=== PATIENT | female | born 1940 | race Caucasian/White ===

== ENCOUNTER → 2023-12-20 11:14 | Outpatient (REF) | payer MEDICARE, SELFPAY ==
[2023-12-20 10:18] LABS: % Basophils 0.8 % (0-2); % Eosinophils 2.7 % (0-6); % Immature Granulocytes 0.5 % (0-0.5); % Lymphocytes 24.9 % (20.5-51.1); % Monocytes 7.1 % (1.7-9.3); Absolute Eosinophils 0.1 10^3/uL (0-0.7); Absolute Lymphocytes 0.9 10^3/uL (1.2-3.4); Absolute Monocytes 0.3 10^3/uL (0.1-0.6); Absolute Neutrophils 2.3 10^3/uL (1.4-6.5); Hematocrit 37.5 % (37.0-47.0); Hemoglobin 12.8 g/dL (12.0-16.0); Mean Corp Hgb Conc. 34.1 g/dL (33.0-37.0); Mean Corpuscular Hgb 31.3 pg (27.0-31.0); Mean Corpuscular Volume 91.7 fL (81.0-99.0); Mean Platelet Volume 10.5 fL (7.4-10.4); Platelet Count 170 10^3/uL (130-400); Red Blood Cell Count 4.09 10^6/uL (4.20-5.40); Red Cell Dist. Width 12.1 % (11.5-14.5); White Blood Cell Count 3.7 10^3/uL (4.8-10.8)
[2023-12-20 11:17] LABS: ALT (SGPT) 43 U/L (0-35); AST (SGOT) 29 U/L (14-36); Albumin 3.9 g/dl (3.5-5.0); Alkaline Phosphatase 73 U/L (38-126); Blood Urea Nitrogen 13 mg/dl (7-17); Calcium 8.9 mg/dl (8.4-10.2); Carbon Dioxide 27 mmol/L (22-30); Chloride 106 mmol/L (98-107); Glucose 94 mg/dl (70-99); Potassium 3.8 mmol/L (3.5-5.1); Sodium 139 mmol/L (135-145); Total Bilirubin 1.5 mg/dl (0.2-1.3); Total Protein 6.4 g/dl (6.3-8.2); eGFR > 60.00
== END ==
LOC: OIDL 11:14
PROVIDERS: ATTENDING PHYSICIAN Internal Medicine Hematology & Oncology
DX: C50.411 Malignant neoplasm of upper-outer quadrant of right female breast (principal)
CPT/HCPCS: 80053; 85025

== ENCOUNTER → 2023-12-27 11:44 | Outpatient (REF) | payer MEDICARE, SELFPAY ==
[2023-12-27 09:38] LABS: % Basophils 0.5 % (0-2); % Eosinophils 1.9 % (0-6); % Immature Granulocytes 0.3 % (0-0.5); % Lymphocytes 20.5 % (20.5-51.1); % Monocytes 3.7 % (1.7-9.3); % Neutrophils 73.1 % (42.2-75.2); Absolute Eosinophils 0.1 10^3/uL (0-0.7); Absolute Lymphocytes 0.8 10^3/uL (1.2-3.4); Absolute Monocytes 0.1 10^3/uL (0.1-0.6); Absolute Neutrophils 2.7 10^3/uL (1.4-6.5); Hematocrit 35.7 % (37.0-47.0); Hemoglobin 12.1 g/dL (12.0-16.0); Mean Corp Hgb Conc. 33.9 g/dL (33.0-37.0); Mean Corpuscular Hgb 31.4 pg (27.0-31.0); Mean Corpuscular Volume 92.7 fL (81.0-99.0); Mean Platelet Volume 10.5 fL (7.4-10.4); Platelet Count 161 10^3/uL (130-400); Red Blood Cell Count 3.85 10^6/uL (4.20-5.40); Red Cell Dist. Width 12.5 % (11.5-14.5); White Blood Cell Count 3.8 10^3/uL (4.8-10.8)
[2023-12-27 10:14] LABS: ALT (SGPT) 55 U/L (0-35); AST (SGOT) 42 U/L (14-36); Albumin 3.8 g/dl (3.5-5.0); Alkaline Phosphatase 75 U/L (38-126); Blood Urea Nitrogen 20 mg/dl (7-17); Calcium 8.9 mg/dl (8.4-10.2); Carbon Dioxide 29 mmol/L (22-30); Chloride 105 mmol/L (98-107); Glucose 90 mg/dl (70-99); Potassium 3.6 mmol/L (3.5-5.1); Sodium 136 mmol/L (135-145); Total Bilirubin 1.1 mg/dl (0.2-1.3); Total Protein 6.3 g/dl (6.3-8.2); eGFR > 60.00
== END ==
LOC: OIDL 11:44
PROVIDERS: ATTENDING PHYSICIAN Internal Medicine Hematology & Oncology
DX: C50.411 Malignant neoplasm of upper-outer quadrant of right female breast (principal)
CPT/HCPCS: 80053; 85025

== ENCOUNTER 2023-12-29 09:20 | Emergency (ER) | payer MEDICARE, SELFPAY ==
[2023-12-29 09:29] VITALS: BP 129/73
--- NOTE | 2023-12-29 09:45 | ED.GENMED ---
History of Present Illness
General
Chief Complaint: Heart Rate Problem
Source: patient
Time Seen by Provider: 12/29/23 09:44
Travel History
Have you had any contact with someone who has COVID-19?: No
Do you have any symptoms of coronavirus? Fever > 100 degrees, chills, cough, shortness of breath, sore throat, loss of taste or smell, muscle aches, or headache?: No
History of Present Illness
History of Present Illness:
83-year-old female presents to the emergency room complaining of having an episode of rapid heartbeat. Patient was at [facility] where she was observed to have a rapid heart rate of 170. Patient was not startled by this as she
has had multiple episodes of rapid heart rate over many years. She does not have a formal diagnosis but overall sounds like SVT. Episodes typically last a brief amount of time. Patient arrives here with a normal heart rate. She has no symptoms
now. Patient very concerned that visit her dose of chemo today.
Past History
Past History
ED Past Medical History: Other (History of stone in her gallbladder and stone in her kidney diagnosed by ultrasound years ago)
ED Past Surgical History: Appendectomy
Social History
Tobacco: Non-smoker
Alcohol: Daily (Wine One glass)
Drug: None
Personal:
Living: with family
Employment: Retired
Family History
Family History: Other (n/c)
Phy Exam
Physical Exam
Physical Exam:
General: Awake, Alert, Oriented X3. No acute distress.
Vitals: unremarkable
Head: Atraumatic
Eyes: Pupils equal, EOMI
Throat: Airway intact, no exudates
Neck: Trachea midline
Lungs: Clear and equal b/l
Heart: Regular rate, no murmurs
Abd: Soft, Nontender, No pulsatile mass
Neuro: Nonfocal
Skin: Warm, dry, no rash
Extremities: pulses equal b/l, no edema
Course
Orders/Labs/Results
Orders:
Orders
12/29/23 09:25
EKG [Electrocardiogram (*1)] Urgent
Reason for Study: Tachycardia
EKG- Treatment ONCE
12/29/23 10:01
Cardiac Monitoring- Treatment ONCE
12/29/23 10:44
Basic Metabolic Panel Urgent
Complete Blood Count/With Diff Urgent
Magnesium Urgent
Abnormal Lab Results
12/29/23
10:44
WBC 4.5 L 10^3/uL
(4.8-10.8)
RBC 3.73 L 10^6/uL
(4.20-5.40)
Hgb 11.8 L g/dL
(12.0-16.0)
Hct 34.0 L %
(37.0-47.0)
MCH 31.6 H pg
(27.0-31.0)
Abs Immat Gran (auto) 0.1 H 10^3/uL
(0-0.05)
Absolute Lymphs (auto) 0.8 L 10^3/uL
(1.2-3.4)
Immature Gran % 1.5 H %
(0-0.5)
Lymphocytes % 17.3 L %
(20.5-51.1)
Potassium 3.3 L mmol/L
(3.5-5.1)
12/29/23 10:44
12/29/23 10:44
Vital Signs
Initial and Last Documented VS:
Initial Vital Signs
Temp Pulse Resp BP Pulse Ox
98.3 F 98 18 129/73 98
12/29/23 09:29 12/29/23 09:29 12/29/23 09:29 12/29/23 09:29 12/29/23 09:29
Last Documented Vital Signs
Temp Pulse Resp BP Pulse Ox
98.3 F 87 15 103/51 97
12/29/23 09:29 12/29/23 11:30 12/29/23 11:30 12/29/23 11:00 12/29/23 11:30
MDM/Problems Addressed
Differential Diagnosis Includes:
SVT, A-fib with rapid ventricular response
MDM/Problems Addressed:
Patient observed in the emergency room without recurrence of her tachycardia. After discussion with the oncology service the patient was accepted back to [facility] for her chemo. They will arrange outpatient follow-up with a mud jack nozzleman who also
has expertise in oncology. The patient had an episode of SVT which has been an issue she has had for quite some time. She has been having episodes of palpitations for many years. I do not believe this is chemo related.
*Pulse Oximetry
Patient hypoxic: no
*EKG
Interpreted by ED Provider?: Yes
Interpretation: normal
Heart Rate: 96
Rate: normal
Rhythm: sinus
Interval: other (Left anterior fascicular block)
Ischemia: no ischemia
*Director Of Catering Interpretation
Rate: normal
Interpretation: normal
Rhythm: sinus
*Critical Care Note
Total Time (30-74mins, 75-104mins- exclusive of procedures): Not Applicable
Patient Management
Social determinants of health affecting care: Strong social support
ED Attending Note
-
Portions of this chart may have been created with voice recognition software.� Occasional wrong word or��sound alike� substitutions may have occurred due to the inherent limitations of voice recognition software.
Discharge Plan
Departure
Patient Disposition: Home (Routine Discharge)
Date of Disposition: 12/29/23
Time of Disposition: 11:16
Patient with high blood pressure during this ER visit?: No
Condition: Good
Discharge Problem:
SVT (supraventricular tachycardia)
Instructions: Supraventricular tachycardia (SVT)
Prescriptions:
No Action
loperamide [Imodium] 2 mg Capsule
2 mg PO Q4H PRN (Reason: diarrhea)
prochlorperazine maleate 10 mg tablet
10 mg PO Q6H PRN (Reason: nausea)
dexamethasone 4 mg tablet
4 mg PO SUSA
Rx Instructions:
for 2 days after chemo
Activity Restrictions/Additional Instructions:
Please follow up with the mud jack nozzleman that [place] sets you up with. Return for any concerns
Interventions
Interventions:
*Risk Screen - Suicide Last Done: 12/29/23 09:29
*General Assessment Last Done: 12/29/23 09:29
*Neglect/Abuse Screening Last Done: 12/29/23 09:29
ED- Fall Risk Assessment Last Done: 12/29/23 10:08
*ED COVID-19 Vaccine History Last Done: 12/29/23 09:29
*Nursing Disposition Last Done: 12/29/23 11:54
ED- Cardiac Assessment Last Done: 12/29/23 09:47
ED- Pulmonary Assessment Last Done: 12/29/23 09:47
Discharge Date and Time
Discharge Date/Time: 12/29/23 11:55
[2023-12-29 10:13] VITALS: BP 123/61
[2023-12-29 10:53] LABS: % Basophils 0.9 % (0-2); % Eosinophils 3.1 % (0-6); % Immature Granulocytes 1.5 % (0-0.5); % Lymphocytes 17.3 % (20.5-51.1); % Monocytes 8.8 % (1.7-9.3); % Neutrophils 68.4 % (42.2-75.2); Absolute Eosinophils 0.1 10^3/uL (0-0.7); Absolute Immature Granulocytes 0.1 10^3/uL (0-0.05); Absolute Lymphocytes 0.8 10^3/uL (1.2-3.4); Absolute Monocytes 0.4 10^3/uL (0.1-0.6); Absolute Neutrophils 3.1 10^3/uL (1.4-6.5); Hemoglobin 11.8 g/dL (12.0-16.0); Mean Corp Hgb Conc. 34.7 g/dL (33.0-37.0); Mean Corpuscular Hgb 31.6 pg (27.0-31.0); Mean Corpuscular Volume 91.2 fL (81.0-99.0); Mean Platelet Volume 9.9 fL (7.4-10.4); Nucleated Red Blood Cells % 0 %; Platelet Count 162 10^3/uL (130-400); Red Blood Cell Count 3.73 10^6/uL (4.20-5.40); Red Cell Dist. Width 12.7 % (11.5-14.5); White Blood Cell Count 4.5 10^3/uL (4.8-10.8)
[2023-12-29 11:00] VITALS: BP 103/51
[2023-12-29 11:09] LABS: Blood Urea Nitrogen 17 mg/dl (7-17); Calcium 8.6 mg/dl (8.4-10.2); Carbon Dioxide 29 mmol/L (22-30); Chloride 106 mmol/L (98-107); Glucose 88 mg/dl (70-99); Magnesium 1.9 mg/dl (1.6-2.3); Potassium 3.3 mmol/L (3.5-5.1); Sodium 137 mmol/L (135-145); eGFR > 60.00
== END 2023-12-29 11:55 | disposition home or self-care (01) ==
LOC: EMR 09:20
PROVIDERS: EMERGENCY PHYSICIAN Emergency Medicine; FAMILY PHYSICIAN Physician Assistant Medical
DX: I47.10 Supraventricular tachycardia, unspecified (principal); Z90.49 Acquired absence of other specified parts of digestive tract
CPT/HCPCS: 99283; 80048; 83735; 85025; 93005

== ENCOUNTER → 2024-01-10 11:03 | Outpatient (REF) | payer MEDICARE, SELFPAY ==
[2024-01-10 11:04] LABS: % Basophils 0.4 % (0-2); % Immature Granulocytes 0.4 % (0-0.5); % Monocytes 3.9 % (1.7-9.3); % Neutrophils 84.3 % (42.2-75.2); Absolute Eosinophils 0.1 10^3/uL (0-0.7); Absolute Lymphocytes 0.5 10^3/uL (1.2-3.4); Absolute Monocytes 0.2 10^3/uL (0.1-0.6); Absolute Neutrophils 4.3 10^3/uL (1.4-6.5); Hematocrit 32.7 % (37.0-47.0); Hemoglobin 11.3 g/dL (12.0-16.0); Mean Corp Hgb Conc. 34.6 g/dL (33.0-37.0); Mean Corpuscular Hgb 31.7 pg (27.0-31.0); Mean Corpuscular Volume 91.6 fL (81.0-99.0); Mean Platelet Volume 10.1 fL (7.4-10.4); Platelet Count 194 10^3/uL (130-400); Red Blood Cell Count 3.57 10^6/uL (4.20-5.40); Red Cell Dist. Width 13.3 % (11.5-14.5); White Blood Cell Count 5.1 10^3/uL (4.8-10.8)
[2024-01-10 12:54] LABS: ALT (SGPT) 56 U/L (0-35); AST (SGOT) 38 U/L (14-36); Albumin 3.6 g/dl (3.5-5.0); Alkaline Phosphatase 74 U/L (38-126); Blood Urea Nitrogen 17 mg/dl (7-17); Calcium 9.2 mg/dl (8.4-10.2); Carbon Dioxide 27 mmol/L (22-30); Chloride 102 mmol/L (98-107); Glucose 92 mg/dl (70-99); Potassium 3.6 mmol/L (3.5-5.1); Sodium 137 mmol/L (135-145); Total Bilirubin 1.6 mg/dl (0.2-1.3); Total Protein 6.4 g/dl (6.3-8.2); eGFR > 60.00
== END ==
LOC: OIDL 11:03
PROVIDERS: ATTENDING PHYSICIAN Internal Medicine Hematology & Oncology
DX: C50.411 Malignant neoplasm of upper-outer quadrant of right female breast (principal)
CPT/HCPCS: 80053; 85025

== ENCOUNTER → 2024-01-17 14:30 | Outpatient (REF) | payer MEDICARE, SELFPAY ==
[2024-01-17 14:27] LABS: % Basophils 0.4 % (0-2); % Eosinophils 1.5 % (0-6); % Immature Granulocytes 0.9 % (0-0.5); % Lymphocytes 9.1 % (20.5-51.1); % Monocytes 3.6 % (1.7-9.3); % Neutrophils 84.5 % (42.2-75.2); Absolute Eosinophils 0.1 10^3/uL (0-0.7); Absolute Lymphocytes 0.4 10^3/uL (1.2-3.4); Absolute Monocytes 0.2 10^3/uL (0.1-0.6); Hematocrit 30.7 % (37.0-47.0); Hemoglobin 10.4 g/dL (12.0-16.0); Mean Corp Hgb Conc. 33.9 g/dL (33.0-37.0); Mean Corpuscular Hgb 31.1 pg (27.0-31.0); Mean Corpuscular Volume 91.9 fL (81.0-99.0); Mean Platelet Volume 9.8 fL (7.4-10.4); Platelet Count 181 10^3/uL (130-400); Red Blood Cell Count 3.34 10^6/uL (4.20-5.40); Red Cell Dist. Width 13.5 % (11.5-14.5); White Blood Cell Count 4.7 10^3/uL (4.8-10.8)
[2024-01-17 15:23] LABS: ALT (SGPT) 36 U/L (0-35); AST (SGOT) 28 U/L (14-36); Albumin 3.7 g/dl (3.5-5.0); Alkaline Phosphatase 74 U/L (38-126); Blood Urea Nitrogen 15 mg/dl (7-17); Calcium 8.7 mg/dl (8.4-10.2); Carbon Dioxide 27 mmol/L (22-30); Chloride 103 mmol/L (98-107); Glucose 93 mg/dl (70-99); Potassium 3.5 mmol/L (3.5-5.1); Sodium 135 mmol/L (135-145); Total Bilirubin 1.5 mg/dl (0.2-1.3); Total Protein 6.2 g/dl (6.3-8.2); eGFR > 60.00
== END ==
LOC: OIDL 14:30
PROVIDERS: ATTENDING PHYSICIAN Internal Medicine Hematology & Oncology
DX: C50.411 Malignant neoplasm of upper-outer quadrant of right female breast (principal)
CPT/HCPCS: 80053; 85025

== ENCOUNTER → 2024-01-17 17:07 | Outpatient (REF) | payer MEDICARE, SELFPAY | LOC: RAD 17:07 | PROVIDERS: ATTENDING PHYSICIAN Physician Assistant Medical | DX: M79.604 Pain in right leg (principal) | CPT/HCPCS: 76882 ==

== ENCOUNTER → 2024-01-24 13:20 | Outpatient (REF) | payer MEDICARE, SELFPAY ==
[2024-01-24 11:36] LABS: % Basophils 0.8 % (0-2); % Eosinophils 0.8 % (0-6); % Immature Granulocytes 0.6 % (0-0.5); % Lymphocytes 12.2 % (20.5-51.1); % Monocytes 3.9 % (1.7-9.3); % Neutrophils 81.7 % (42.2-75.2); Absolute Lymphocytes 0.4 10^3/uL (1.2-3.4); Absolute Monocytes 0.1 10^3/uL (0.1-0.6); Hematocrit 28.6 % (37.0-47.0); Hemoglobin 9.7 g/dL (12.0-16.0); Mean Corp Hgb Conc. 33.9 g/dL (33.0-37.0); Mean Corpuscular Volume 91.4 fL (81.0-99.0); Platelet Count 178 10^3/uL (130-400); Red Blood Cell Count 3.13 10^6/uL (4.20-5.40); White Blood Cell Count 3.6 10^3/uL (4.8-10.8)
[2024-01-24 12:12] LABS: ALT (SGPT) 28 U/L (0-35); AST (SGOT) 26 U/L (14-36); Albumin 3.4 g/dl (3.5-5.0); Alkaline Phosphatase 72 U/L (38-126); Blood Urea Nitrogen 16 mg/dl (7-17); Calcium 8.8 mg/dl (8.4-10.2); Carbon Dioxide 30 mmol/L (22-30); Chloride 98 mmol/L (98-107); Glucose 107 mg/dl (70-99); Potassium 3.4 mmol/L (3.5-5.1); Sodium 135 mmol/L (135-145); Total Bilirubin 1.2 mg/dl (0.2-1.3); Total Protein 5.9 g/dl (6.3-8.2); eGFR > 60.00
== END ==
LOC: OIDL 13:20
PROVIDERS: ATTENDING PHYSICIAN Nurse Practitioner Adult Health
DX: C50.411 Malignant neoplasm of upper-outer quadrant of right female breast (principal)
CPT/HCPCS: 80053; 85025

== ENCOUNTER → 2024-01-31 13:35 | Outpatient (REF) | payer MEDICARE, SELFPAY ==
[2024-01-31 10:49] LABS: % Basophils 0.9 % (0-2); % Eosinophils 1.1 % (0-6); % Immature Granulocytes 2.5 % (0-0.5); % Lymphocytes 11.4 % (20.5-51.1); % Neutrophils 80.1 % (42.2-75.2); Absolute Eosinophils 0.1 10^3/uL (0-0.7); Absolute Immature Granulocytes 0.1 10^3/uL (0-0.05); Absolute Lymphocytes 0.5 10^3/uL (1.2-3.4); Absolute Monocytes 0.2 10^3/uL (0.1-0.6); Absolute Neutrophils 3.6 10^3/uL (1.4-6.5); Hematocrit 27.8 % (37.0-47.0); Hemoglobin 9.4 g/dL (12.0-16.0); Mean Corp Hgb Conc. 33.8 g/dL (33.0-37.0); Mean Corpuscular Hgb 31.1 pg (27.0-31.0); Mean Corpuscular Volume 92.1 fL (81.0-99.0); Mean Platelet Volume 10.3 fL (7.4-10.4); Platelet Count 190 10^3/uL (130-400); Red Blood Cell Count 3.02 10^6/uL (4.20-5.40); Red Cell Dist. Width 14.3 % (11.5-14.5); White Blood Cell Count 4.5 10^3/uL (4.8-10.8)
[2024-01-31 11:52] LABS: ALT (SGPT) 23 U/L (0-35); AST (SGOT) 25 U/L (14-36); Albumin 3.2 g/dl (3.5-5.0); Alkaline Phosphatase 63 U/L (38-126); Blood Urea Nitrogen 15 mg/dl (7-17); Calcium 8.7 mg/dl (8.4-10.2); Carbon Dioxide 28 mmol/L (22-30); Chloride 100 mmol/L (98-107); Glucose 86 mg/dl (70-99); Potassium 3.5 mmol/L (3.5-5.1); Sodium 133 mmol/L (135-145); Total Bilirubin 1.3 mg/dl (0.2-1.3); Total Protein 5.6 g/dl (6.3-8.2); eGFR 56.25
== END ==
LOC: OIDL 13:35
PROVIDERS: ATTENDING PHYSICIAN Nurse Practitioner Family
DX: C50.411 Malignant neoplasm of upper-outer quadrant of right female breast (principal)
CPT/HCPCS: 80053; 85025

== ENCOUNTER 2024-02-07 15:54 | Emergency (ER) | payer MEDICARE, SELFPAY ==
[2024-02-07 15:58] VITALS: BP 130/63
--- NOTE | 2024-02-07 16:27 | ED.GENMED ---
History of Present Illness
<Naya Dowd PA-C - Last Filed: 02/07/24 21:13>
General
Chief Complaint: Cold/Flu/URI Symptoms
Source: patient
Exam Limitations: none
Time Seen by Provider: 02/07/24 16:27
Nursing documentation reviewed up to this point in time: agreed with
Travel History
Have you had any contact with someone who has COVID-19?: Yes
Comment: patient covid+
Do you have any symptoms of coronavirus? Fever > 100 degrees, chills, cough, shortness of breath, sore throat, loss of taste or smell, muscle aches, or headache?: Yes
Symptoms:: covid+
History of Present Illness
History of Present Illness:
81-year-old female with past medical history of asthma, breast cancer, IBS presenting emergency department today with generalized weakness and general URI symptoms the past week. Patient states that she has one more chemotherapy treatment scheduled
this week before the end of this week. Patient states that this current round of chemotherapy treatment has been especially difficult for her, and she has never felt this week before. Patient spoke to her oncology team who gave her more IV fluids.
They also recommended taking COVID test. This test was positive today by rapid at home test. Patient currently denies chest pain, shortness of breath, nausea, vomiting. Patient states that she has a severely decreased appetite secondary to
chemotherapy. Patient feels very dehydrated. Patient denies fevers or chills at home.
Past History
<Naya Dowd PA-C - Last Filed: 02/07/24 21:13>
Past History
ED Past Medical History: Other (History of stone in her gallbladder and stone in her kidney diagnosed by ultrasound years ago)
ED Past Surgical History: Appendectomy
Social History
Tobacco: Non-smoker
Alcohol: Daily (Wine One glass)
Drug: None
Personal:
Living: with family
Employment: Retired
Family History
Family History: Other (n/c)
Review of Systems
<Naya Dowd PA-C - Last Filed: 02/07/24 21:13>
Review of Systems
All Other Systems: ROS reviewed and negative except as documented in HPI and ROS
Phy Exam
<Naya Dowd PA-C - Last Filed: 02/07/24 21:13>
Physical Exam
Physical Exam:
Vitals: Patients vital signs are stable
General: Patient appears chronically ill
Skin: Warm and dry, no rashes or lesions
Head: Normocephalic, atraumatic
Cardiac: Regular rate and rhythm, no murmurs
Pulm: Normal respiratory effort, no wheezes, rales, or rhonchi
Abdomen: No abdominal tenderness
Neuro: CN II-XII intact. No focal neurologic deficits.
Course
<Naya Dowd PA-C - Last Filed: 02/07/24 21:13>
Orders/Labs/Results
Orders:
Orders
02/07/24 16:40
0.9% Sodium Chloride 1000 ml [Nss] 1,000 ml IV BOLUS
02/07/24 17:05
Complete Blood Count/With Diff Urgent
Comprehensive Metabolic Panel Urgent
Abnormal Lab Results
02/07/24
17:05
WBC 4.7 L 10^3/uL
(4.8-10.8)
RBC 2.85 L 10^6/uL
(4.20-5.40)
Hgb 8.9 L g/dL
(12.0-16.0)
Hct 25.3 L %
(37.0-47.0)
MCH 31.2 H pg
(27.0-31.0)
RDW 14.8 H %
(11.5-14.5)
MPV 10.5 H fL
(7.4-10.4)
Abs Immat Gran (auto) 0.1 H 10^3/uL
(0-0.05)
Absolute Lymphs (auto) 0.6 L 10^3/uL
(1.2-3.4)
Immature Gran % 1.7 H %
(0-0.5)
Neutrophils % 82.1 H %
(42.2-75.2)
Lymphocytes % 12.2 L %
(20.5-51.1)
Sodium 130 L mmol/L
(135-145)
Chloride 93 L mmol/L
(98-107)
BUN 21 H mg/dl
(7-17)
Total Protein 5.5 L g/dl
(6.3-8.2)
Albumin 3.1 L g/dl
(3.5-5.0)
02/07/24 17:05
02/07/24 17:05
Vital Signs
Initial and Last Documented VS:
Initial Vital Signs
Temp Pulse Resp BP Pulse Ox
98.1 F 91 16 130/63 96
02/07/24 15:58 02/07/24 15:58 02/07/24 15:58 02/07/24 15:58 02/07/24 15:58
Last Documented Vital Signs
Temp Pulse Resp BP Pulse Ox
98.1 F 91 16 130/63 96
02/07/24 15:58 02/07/24 15:58 02/07/24 15:58 02/07/24 15:58 02/07/24 15:58
Briannalt;René Patricio, - Last Filed: 02/07/24 17:35>
Orders/Labs/Results
Orders:
Orders
02/07/24 16:40
0.9% Sodium Chloride 1000 ml [Nss] 1,000 ml IV BOLUS
02/07/24 17:05
Complete Blood Count/With Diff Urgent
Comprehensive Metabolic Panel Urgent
Abnormal Lab Results
02/07/24
17:05
WBC 4.7 L 10^3/uL
(4.8-10.8)
RBC 2.85 L 10^6/uL
(4.20-5.40)
Hgb 8.9 L g/dL
(12.0-16.0)
Hct 25.3 L %
(37.0-47.0)
MCH 31.2 H pg
(27.0-31.0)
RDW 14.8 H %
(11.5-14.5)
MPV 10.5 H fL
(7.4-10.4)
Abs Immat Gran (auto) 0.1 H 10^3/uL
(0-0.05)
Absolute Lymphs (auto) 0.6 L 10^3/uL
(1.2-3.4)
Immature Gran % 1.7 H %
(0-0.5)
Neutrophils % 82.1 H %
(42.2-75.2)
Lymphocytes % 12.2 L %
(20.5-51.1)
Sodium 130 L mmol/L
(135-145)
Chloride 93 L mmol/L
(98-107)
BUN 21 H mg/dl
(7-17)
Total Protein 5.5 L g/dl
(6.3-8.2)
Albumin 3.1 L g/dl
(3.5-5.0)
02/07/24 17:05
02/07/24 17:05
Vital Signs
Initial and Last Documented VS:
Initial Vital Signs
Temp Pulse Resp BP Pulse Ox
98.1 F 91 16 130/63 96
03/27/24 15:58 02/07/24 15:58 02/07/24 15:58 02/07/24 15:58 02/07/24 15:58
Last Documented Vital Signs
Temp Pulse Resp BP Pulse Ox
98.1 F 91 16 130/63 96
02/07/24 15:58 02/07/24 15:58 02/07/24 15:58 02/07/24 15:58 02/07/24 15:58
<Naya Dowd PA-C - Last Filed: 02/07/24 21:13>
MDM/Problems Addressed
Differential Diagnosis Includes:
Differentials include COVID-19, deconditioning, chemotherapy side effects, upper respiratory tract infection
MDM/Problems Addressed:
Weakness, upper respiratory symptoms
Chronic conditions affecting care:
Breast cancer, asthma, IBS, diverticulosis
Acute Exacerbation and/or Progression of Chronic Illness:
breast cancer
<Naya Dowd PA-C - Last Filed: 02/07/24 21:13>
*Critical Care Note
Total Time (30-74mins, 75-104mins- exclusive of procedures): Not Applicable
<Naya Dowd PA-C - Last Filed: 02/07/24 21:13>
Patient Management
Escalation/DeEscalation of care consider admission/obs:
81-year-old female with past medical history of asthma, breast cancer, IBS presenting emergency department today with generalized weakness and general URI symptoms the past week. Patient states that she has been suffering a lot from her
chemotherapy side effects. Patient was given fluids which states that she did feel a bit better with this. Patient did test positive for COVID at home. In emergency department, her CBC showed values consistent with being treated with
chemotherapy. Her CMP was unremarkable. Renal function intact. Considering patient's immunocompromise status, we will start her on Paxlovid. Advised patient to follow-up with her oncologist, return emergency department for any new or worsening
symptoms. Patient aware with plan, requesting to go home.
ED Attending Note
<Naya Dowd PA-C - Last Filed: 02/07/24 21:13>
-
Portions of this chart may have been created with voice recognition software.� Occasional wrong word or��sound alike� substitutions may have occurred due to the inherent limitations of voice recognition software.
<René Patricio DO - Last Filed: 02/07/24 17:35>
ED Attending Note
Patient seen and examined by attending physician: Yes
I performed the substantive portion of visit, reviewed & personally made and approve the management plan that is documented in note by myself or DENISE.: Yes
ED Attending Note:
I agree with gutierrez note
Patient has been feeling malaise, body aches lack of energy for the past weeks. Patient is receiving chemotherapy for breast cancer. She feels like after each treatment she is progressively more weak. She was discussing her symptoms with her
oncologist who recommended she take a COVID test today. The test was positive. Patient denies any fever. She denies being short of breath. No significant cough.
General: Awake, Alert, Oriented X3. Appears frail, chronically ill
Vitals: Afebrile, normal pulse ox
Head: Atraumatic
Eyes: Pupils equal, EOMI
Throat: Airway intact, no exudates
Neck: Trachea midline
Lungs: Clear and equal b/l
Heart: Regular rate, no murmurs
Abd: Soft, Nontender, No pulsatile mass
Neuro: Nonfocal
Skin: Warm, dry, no rash
Extremities: pulses equal b/l, no edema
Discharge Plan
Departure
Patient Disposition: Home (Routine Discharge)
Date of Disposition: 02/07/24
Time of Disposition: 18:35
Patient with high blood pressure during this ER visit?: Yes
Condition: Good
Discharge Problem:
COVID-19
Instructions: COVID-19 (DC), Nirmatrelvir and Ritonavir, BLOOD PRESSURE
Prescriptions:
New
Paxlovid 300 mg (150 mg x 2)-100 mg tablets,dose pack
See Rx Instructions .ROUTE .COMPLEX Qty: 30 0RF
Rx Instructions:
take TWO 150 mg tablets of nirmatrelvir with ONE 100 mg tablet of ritonavir twice daily for 5 days
No Action
loperamide [Imodium] 2 mg Capsule
2 mg PO Q4H PRN (Reason: diarrhea)
prochlorperazine maleate 10 mg tablet
10 mg PO Q6H PRN (Reason: nausea)
dexamethasone 4 mg tablet
4 mg PO SUSA
Rx Instructions:
for 2 days after chemo
ondansetron HCl 8 mg tablet
8 mg PO Q8H PRN (Reason: nausea)
ibuprofen 200 mg Capsule
400 mg PO Q6H PRN (Reason: mild pain/fever)
omeprazole 20 mg capsule,delayed release(DR/EC)
20 mg PO DAILY
metoprolol succinate 25 mg tablet extended release 24 hr
25 mg PO HS
metoprolol tartrate 25 mg tablet
25 mg PO UD PRN (Reason: palpitations)
Rx Instructions:
take after 5 minute and repeat at 15 minutes if needed
Referrals:
UNKNOWN - PT DOES,NOT KNOW [Unknown Provider] -
Activity Restrictions/Additional Instructions:
We have sent Paxlovid (Nirmatrelvir and ritonavir) to your pharmacy. Please take two 150 mg tablets of nirmatrelvir with one 100 mg tablet of ritonavir twice daily for 5 days.
Please return to the emergency department if you experience chest pain, shortness of breath, lower extremity swelling, or other concerning signs or symptoms.
Please follow up with your oncologist and primary care provider.
Interventions
Interventions:
*Risk Screen - Suicide Last Done: 02/07/24 16:55
*General Assessment Last Done: 02/07/24 16:55
*Neglect/Abuse Screening Last Done: 02/07/24 16:55
*ED COVID-19 Vaccine History Last Done: 02/07/24 16:04
*Nursing Disposition Last Done: 02/07/24 19:00
ED- Pulmonary Assessment Last Done: 02/07/24 16:55
Discharge Date and Time
Discharge Date/Time: 02/07/24 19:37
Print Language: POLISH
[2024-02-07] MEDS: NSS 1000 IV (17:13)
[2024-02-07 17:28] LABS: % Basophils 0.6 % (0-2); % Eosinophils 0.2 % (0-6); % Immature Granulocytes 1.7 % (0-0.5); % Lymphocytes 12.2 % (20.5-51.1); % Monocytes 3.2 % (1.7-9.3); % Neutrophils 82.1 % (42.2-75.2); Absolute Immature Granulocytes 0.1 10^3/uL (0-0.05); Absolute Lymphocytes 0.6 10^3/uL (1.2-3.4); Absolute Monocytes 0.2 10^3/uL (0.1-0.6); Absolute Neutrophils 3.8 10^3/uL (1.4-6.5); Hematocrit 25.3 % (37.0-47.0); Hemoglobin 8.9 g/dL (12.0-16.0); Mean Corp Hgb Conc. 35.2 g/dL (33.0-37.0); Mean Corpuscular Hgb 31.2 pg (27.0-31.0); Mean Corpuscular Volume 88.8 fL (81.0-99.0); Mean Platelet Volume 10.5 fL (7.4-10.4); Nucleated Red Blood Cells % 0 %; Platelet Count 187 10^3/uL (130-400); Red Blood Cell Count 2.85 10^6/uL (4.20-5.40); Red Cell Dist. Width 14.8 % (11.5-14.5); White Blood Cell Count 4.7 10^3/uL (4.8-10.8)
[2024-02-07 17:42] LABS: ALT (SGPT) 22 U/L (0-35); AST (SGOT) 26 U/L (14-36); Albumin 3.1 g/dl (3.5-5.0); Alkaline Phosphatase 65 U/L (38-126); Blood Urea Nitrogen 21 mg/dl (7-17); Calcium 9.5 mg/dl (8.4-10.2); Carbon Dioxide 28 mmol/L (22-30); Chloride 93 mmol/L (98-107); Glucose 89 mg/dl (70-99); Potassium 3.5 mmol/L (3.5-5.1); Sodium 130 mmol/L (135-145); Total Bilirubin 1.3 mg/dl (0.2-1.3); Total Protein 5.5 g/dl (6.3-8.2); eGFR > 60.00
== END 2024-02-07 19:37 | disposition home or self-care (01) ==
LOC: EMR 15:54
PROVIDERS: Physician Assistant; EMERGENCY PHYSICIAN Emergency Medicine; FAMILY PHYSICIAN Physician Assistant Medical
DX: U07.1 COVID-19 (principal); C50.919 Malignant neoplasm of unspecified site of unspecified female breast; J45.909 Unspecified asthma, uncomplicated; K58.9 Irritable bowel syndrome, unspecified
CPT/HCPCS: 99284; 96360; 80053; 85025

== ENCOUNTER → 2024-02-14 11:04 | Outpatient (REF) | payer MEDICARE, SELFPAY | LOC: RAD 11:04 | PROVIDERS: ATTENDING PHYSICIAN Surgery Vascular Surgery; FAMILY PHYSICIAN Physician Assistant Medical | DX: I83.891 Varicose veins of right lower extremity with other complications (principal) | CPT/HCPCS: 93970 ==

== ENCOUNTER → 2024-02-20 10:25 | Outpatient (REF) | payer MEDICARE, SELFPAY | LOC: RCS 10:25 | PROVIDERS: ATTENDING PHYSICIAN Internal Medicine Cardiovascular Disease; FAMILY PHYSICIAN Physician Assistant Medical | DX: I47.10 Supraventricular tachycardia, unspecified (principal); Z85.3 Personal history of malignant neoplasm of breast; T45.1X5D Adverse effect of antineoplastic and immunosuppressive drugs, subsequent encounter | CPT/HCPCS: 93306; 93356 ==

== ENCOUNTER 2024-02-21 16:24 | Outpatient (RCR) | payer MEDICARE, SELFPAY ==
[2024-02-21 08:48] LABS: % Basophils 0.4 % (0-2); % Eosinophils 1.7 % (0-6); % Immature Granulocytes 1.1 % (0-0.5); % Lymphocytes 10.4 % (20.5-51.1); % Monocytes 9.2 % (1.7-9.3); % Neutrophils 77.2 % (42.2-75.2); Absolute Basophils 0.1 10^3/uL (0-0.2); Absolute Eosinophils 0.3 10^3/uL (0-0.7); Absolute Immature Granulocytes 0.2 10^3/uL (0-0.05); Absolute Lymphocytes 1.8 10^3/uL (1.2-3.4); Absolute Monocytes 1.6 10^3/uL (0.1-0.6); Absolute Neutrophils 13.4 10^3/uL (1.4-6.5); Hematocrit 28.9 % (37.0-47.0); Hemoglobin 9.6 g/dL (12.0-16.0); Mean Corp Hgb Conc. 33.2 g/dL (33.0-37.0); Mean Corpuscular Hgb 31.4 pg (27.0-31.0); Mean Corpuscular Volume 94.4 fL (81.0-99.0); Mean Platelet Volume 9.9 fL (7.4-10.4); Platelet Count 235 10^3/uL (130-400); Red Blood Cell Count 3.06 10^6/uL (4.20-5.40); Red Cell Dist. Width 15.4 % (11.5-14.5); White Blood Cell Count 17.3 10^3/uL (4.8-10.8)
[2024-02-21 09:31] LABS: ALT (SGPT) 19 U/L (0-35); AST (SGOT) 23 U/L (14-36); Albumin 3.1 g/dl (3.5-5.0); Alkaline Phosphatase 67 U/L (38-126); Blood Urea Nitrogen 22 mg/dl (7-17); Calcium 10.8 mg/dl (8.4-10.2); Carbon Dioxide 29 mmol/L (22-30); Chloride 96 mmol/L (98-107); Glucose 90 mg/dl (70-99); Potassium 3.7 mmol/L (3.5-5.1); Sodium 133 mmol/L (135-145); Total Bilirubin 1.4 mg/dl (0.2-1.3); Total Protein 5.7 g/dl (6.3-8.2); eGFR 29.76
[2024-02-22 14:35] LABS: % Basophils 0.4 % (0-2); % Eosinophils 2.6 % (0-6); % Immature Granulocytes 0.9 % (0-0.5); % Lymphocytes 12.3 % (20.5-51.1); % Neutrophils 75.8 % (42.2-75.2); Absolute Basophils 0.1 10^3/uL (0-0.2); Absolute Eosinophils 0.4 10^3/uL (0-0.7); Absolute Immature Granulocytes 0.1 10^3/uL (0-0.05); Absolute Lymphocytes 1.7 10^3/uL (1.2-3.4); Absolute Monocytes 1.1 10^3/uL (0.1-0.6); Absolute Neutrophils 10.3 10^3/uL (1.4-6.5); Hematocrit 27.5 % (37.0-47.0); Hemoglobin 9.1 g/dL (12.0-16.0); Mean Corp Hgb Conc. 33.1 g/dL (33.0-37.0); Mean Corpuscular Hgb 31.2 pg (27.0-31.0); Mean Corpuscular Volume 94.2 fL (81.0-99.0); Mean Platelet Volume 10.4 fL (7.4-10.4); Platelet Count 225 10^3/uL (130-400); Red Blood Cell Count 2.92 10^6/uL (4.20-5.40); Red Cell Dist. Width 15.4 % (11.5-14.5); White Blood Cell Count 13.7 10^3/uL (4.8-10.8)
[2024-02-22 15:39] LABS: ALT (SGPT) 18 U/L (0-35); AST (SGOT) 23 U/L (14-36); Albumin 2.9 g/dl (3.5-5.0); Alkaline Phosphatase 67 U/L (38-126); Blood Urea Nitrogen 23 mg/dl (7-17); Calcium 10.1 mg/dl (8.4-10.2); Carbon Dioxide 29 mmol/L (22-30); Chloride 99 mmol/L (98-107); Glucose 101 mg/dl (70-99); Magnesium 1.6 mg/dl (1.6-2.3); Potassium 3.5 mmol/L (3.5-5.1); Sodium 134 mmol/L (135-145); Total Protein 5.5 g/dl (6.3-8.2); eGFR 34.58
[2024-02-24 10:16] LABS: Intact PTH 5.9 pg/ml (13.6-85.8)
[2024-03-05 10:18] LABS: % Basophils 0.7 % (0-2); % Eosinophils 1.9 % (0-6); % Immature Granulocytes 0.4 % (0-0.5); % Lymphocytes 9.9 % (20.5-51.1); % Monocytes 9.2 % (1.7-9.3); % Neutrophils 77.9 % (42.2-75.2); Absolute Basophils 0.1 10^3/uL (0-0.2); Absolute Eosinophils 0.2 10^3/uL (0-0.7); Absolute Monocytes 0.9 10^3/uL (0.1-0.6); Absolute Neutrophils 7.9 10^3/uL (1.4-6.5); Hematocrit 26.1 % (37.0-47.0); Hemoglobin 8.5 g/dL (12.0-16.0); Mean Corp Hgb Conc. 32.6 g/dL (33.0-37.0); Mean Corpuscular Hgb 30.8 pg (27.0-31.0); Mean Corpuscular Volume 94.6 fL (81.0-99.0); Mean Platelet Volume 10.4 fL (7.4-10.4); Platelet Count 268 10^3/uL (130-400); Red Blood Cell Count 2.76 10^6/uL (4.20-5.40); Red Cell Dist. Width 14.2 % (11.5-14.5); White Blood Cell Count 10.1 10^3/uL (4.8-10.8)
[2024-03-05 10:42] LABS: ALT (SGPT) 12 U/L (0-35); AST (SGOT) 21 U/L (14-36); Alkaline Phosphatase 71 U/L (38-126); Blood Urea Nitrogen 14 mg/dl (7-17); Calcium 8.4 mg/dl (8.4-10.2); Carbon Dioxide 28 mmol/L (22-30); Chloride 101 mmol/L (98-107); Glucose 79 mg/dl (70-99); Magnesium 1.5 mg/dl (1.6-2.3); Potassium 3.5 mmol/L (3.5-5.1); Sodium 136 mmol/L (135-145); Total Bilirubin 0.8 mg/dl (0.2-1.3); eGFR > 60.00
[2024-03-06 11:32] LABS: Iron 49 ug/dl (37-170)
[2024-03-06 11:42] LABS: Percent Saturation 26 % (20-50); Total Iron Binding Capacity 183 ug/dl (265-497)
== END 2024-03-12 23:59 | disposition home or self-care (01) ==
LOC: OID 16:24
PROVIDERS: ATTENDING PHYSICIAN Internal Medicine Hematology & Oncology
DX: C34.11 Malignant neoplasm of upper lobe, right bronchus or lung (principal)
CPT/HCPCS: 80053; 82728; 83540; 83550; 83735; 83970; 85025

== ENCOUNTER → 2024-04-03 15:00 | Outpatient (REF) | payer MEDICARE, SELFPAY ==
[2024-04-03 10:22] LABS: ALT (SGPT) 20 U/L (0-35); AST (SGOT) 32 U/L (14-36); Albumin 3.6 g/dl (3.5-5.0); Alkaline Phosphatase 86 U/L (38-126); Blood Urea Nitrogen 14 mg/dl (7-17); Calcium 9.3 mg/dl (8.4-10.2); Carbon Dioxide 25 mmol/L (22-30); Chloride 106 mmol/L (98-107); Glucose 87 mg/dl (70-99); Potassium 3.9 mmol/L (3.5-5.1); Sodium 140 mmol/L (135-145); Total Bilirubin 0.6 mg/dl (0.2-1.3); Total Protein 6.8 g/dl (6.3-8.2); eGFR > 60.00
== END ==
LOC: OIDL 15:00
PROVIDERS: ATTENDING PHYSICIAN Internal Medicine Hematology & Oncology
DX: C50.411 Malignant neoplasm of upper-outer quadrant of right female breast (principal)
CPT/HCPCS: 80053

== ENCOUNTER → 2024-04-19 10:30 | Outpatient (REF) | payer MEDICARE, SELFPAY ==
[2024-04-19 12:04] LABS: % Basophils 1.1 % (0-2); % Eosinophils 2.4 % (0-6); % Immature Granulocytes 0.2 % (0-0.5); % Lymphocytes 17.1 % (20.5-51.1); % Monocytes 8.3 % (1.7-9.3); % Neutrophils 70.9 % (42.2-75.2); Absolute Basophils 0.1 10^3/uL (0-0.2); Absolute Eosinophils 0.1 10^3/uL (0-0.7); Absolute Lymphocytes 0.8 10^3/uL (1.2-3.4); Absolute Monocytes 0.4 10^3/uL (0.1-0.6); Absolute Neutrophils 3.2 10^3/uL (1.4-6.5); Hematocrit 34.9 % (37.0-47.0); Hemoglobin 10.9 g/dL (12.0-16.0); Mean Corp Hgb Conc. 31.2 g/dL (33.0-37.0); Mean Corpuscular Hgb 31.3 pg (27.0-31.0); Mean Corpuscular Volume 100.3 fL (81.0-99.0); Mean Platelet Volume 10.2 fL (7.4-10.4); Nucleated Red Blood Cells % 0 %; Platelet Count 165 10^3/uL (130-400); Red Blood Cell Count 3.48 10^6/uL (4.20-5.40); Red Cell Dist. Width 14.7 % (11.5-14.5); White Blood Cell Count 4.6 10^3/uL (4.8-10.8)
== END ==
LOC: RCS 10:30
PROVIDERS: ATTENDING PHYSICIAN Internal Medicine Cardiovascular Disease; FAMILY PHYSICIAN Physician Assistant Medical; REFERRING PHYSICIAN Internal Medicine Hematology & Oncology
DX: I35.1 Nonrheumatic aortic (valve) insufficiency (principal); C50.411 Malignant neoplasm of upper-outer quadrant of right female breast
CPT/HCPCS: 36415; 85025; 93306; 93356

== ENCOUNTER → 2024-05-08 08:10 | Outpatient (REF) | payer MEDICARE, SELFPAY | LOC: RAD 08:10 | PROVIDERS: ATTENDING PHYSICIAN Internal Medicine Hematology & Oncology; FAMILY PHYSICIAN Family Medicine | DX: C50.411 Malignant neoplasm of upper-outer quadrant of right female breast (principal); D51.9 Vitamin B12 deficiency anemia, unspecified; M81.0 Age-related osteoporosis without current pathological fracture | CPT/HCPCS: 77080 ==

== ENCOUNTER → 2024-05-22 09:01 | Outpatient (REF) | payer MEDICARE, SELFPAY ==
[2024-05-22 09:15] LABS: % Basophils 1.1 % (0-2); % Immature Granulocytes 0.2 % (0-0.5); % Lymphocytes 20.2 % (20.5-51.1); % Monocytes 10.4 % (1.7-9.3); % Neutrophils 64.1 % (42.2-75.2); Absolute Basophils 0.1 10^3/uL (0-0.2); Absolute Eosinophils 0.2 10^3/uL (0-0.7); Absolute Monocytes 0.5 10^3/uL (0.1-0.6); Hematocrit 37.6 % (37.0-47.0); Hemoglobin 12.5 g/dL (12.0-16.0); Mean Corp Hgb Conc. 33.2 g/dL (33.0-37.0); Mean Corpuscular Hgb 32.1 pg (27.0-31.0); Mean Corpuscular Volume 96.7 fL (81.0-99.0); Mean Platelet Volume 10.8 fL (7.4-10.4); Platelet Count 162 10^3/uL (130-400); Red Blood Cell Count 3.89 10^6/uL (4.20-5.40); Red Cell Dist. Width 12.7 % (11.5-14.5); White Blood Cell Count 4.7 10^3/uL (4.8-10.8)
== END ==
LOC: OIDL 09:01
PROVIDERS: ATTENDING PHYSICIAN Internal Medicine Hematology & Oncology
DX: C50.411 Malignant neoplasm of upper-outer quadrant of right female breast (principal); D51.9 Vitamin B12 deficiency anemia, unspecified; M81.0 Age-related osteoporosis without current pathological fracture
CPT/HCPCS: 85025

== ENCOUNTER → 2024-06-10 14:38 | Outpatient (REF) | payer MEDICARE, SELFPAY ==
[2024-06-10 15:37] LABS: % Basophils 1.2 % (0-2); % Eosinophils 2.6 % (0-6); % Immature Granulocytes 0.4 % (0-0.5); % Lymphocytes 28.5 % (20.5-51.1); % Monocytes 9.6 % (1.7-9.3); % Neutrophils 57.7 % (42.2-75.2); Absolute Basophils 0.1 10^3/uL (0-0.2); Absolute Eosinophils 0.1 10^3/uL (0-0.7); Absolute Lymphocytes 1.4 10^3/uL (1.2-3.4); Absolute Monocytes 0.5 10^3/uL (0.1-0.6); Absolute Neutrophils 2.9 10^3/uL (1.4-6.5); Hematocrit 34.9 % (37.0-47.0); Hemoglobin 12.1 g/dL (12.0-16.0); Mean Corp Hgb Conc. 34.7 g/dL (33.0-37.0); Mean Corpuscular Hgb 31.7 pg (27.0-31.0); Mean Corpuscular Volume 91.4 fL (81.0-99.0); Mean Platelet Volume 10.6 fL (7.4-10.4); Nucleated Red Blood Cells % 0 %; Platelet Count 143 10^3/uL (130-400); Red Blood Cell Count 3.82 10^6/uL (4.20-5.40); Red Cell Dist. Width 12.3 % (11.5-14.5)
[2024-06-10 16:00] LABS: ALT (SGPT) 21 U/L (0-35); AST (SGOT) 30 U/L (14-36); Albumin 4.1 g/dl (3.5-5.0); Alkaline Phosphatase 57 U/L (38-126); Blood Urea Nitrogen 17 mg/dl (7-17); Calcium 9.6 mg/dl (8.4-10.2); Carbon Dioxide 27 mmol/L (22-30); Chloride 104 mmol/L (98-107); Glucose 102 mg/dl (70-99); Potassium 3.5 mmol/L (3.5-5.1); Sodium 138 mmol/L (135-145); Total Bilirubin 0.8 mg/dl (0.2-1.3); Total Protein 6.8 g/dl (6.3-8.2); eGFR > 60.00
[2024-06-10 16:04] LABS: C-Reactive Protein < 5.00 mg/L (0.0-10.00)
[2024-06-10 16:14] LABS: Erythrocyte Sed Rate 17 mm/hour (0-20)
[2024-06-10 16:21] LABS: Vitamin D, 25-OH*** 99.3 ng/mL (30-80)
[2024-06-10 16:38] LABS: TSH 1.46 uIU/ml (0.47-4.68)
[2024-06-10 17:10] LABS: Folate 12.4 ng/ml (2.76-20); Vitamin B12 > 1000 pg/ml (239-931)
[2024-06-11 11:38] LABS: Syphilis/T. pallidum Ab Reflex Negative (Negative)
== END ==
LOC: REG 14:38
PROVIDERS: ATTENDING PHYSICIAN Internal Medicine Hematology & Oncology; FAMILY PHYSICIAN Physician Assistant Medical
DX: C50.411 Malignant neoplasm of upper-outer quadrant of right female breast (principal); D51.9 Vitamin B12 deficiency anemia, unspecified; M81.0 Age-related osteoporosis without current pathological fracture; R41.3 Other amnesia; I10 Essential (primary) hypertension
CPT/HCPCS: 36415; 80053; 82306; 82607; 82746; 84425; 84443; 85025; 85652; 86140; 86618; 86780

== ENCOUNTER → 2024-06-12 12:32 | Outpatient (REF) | payer MEDICARE, SELFPAY ==
--- NOTE | 2024-06-12 13:37 | W.PN.UPDATE ---
Update Note
Progress Note Update
Pt and her were sent over for port site check. She reports that the port was accessed Monday with no issues for blood draw. She was seen at the cancer center today for infusion and they were not comfortable using the port because of a
small scab noted in the center of the port. The patient and report that the port has looked like that for several months and it had never been an issue. She denies fever, chills, erythema, warmth or drainage. No signs of infection. The
port place was on 11/07/[address] Velasco. Recommend follow up with Dr. Velasco before next infusion scheduled in 3 weeks.
== END ==
LOC: RADI 12:32
PROVIDERS: ATTENDING PHYSICIAN Nurse Practitioner Family; FAMILY PHYSICIAN Physician Assistant Medical
DX: Z45.2 Encounter for adjustment and management of vascular access device (principal)

== ENCOUNTER 2024-06-21 12:49 | Inpatient (IN) | payer MEDICARE, SELFPAY ==
[2024-06-20] VITALS (12 sets, daily range): BP systolic 118–167; BP diastolic 52–98; BMI 19.9; BMI 20.6
--- NOTE | 2024-06-20 08:43 | ED.GENMED ---
History of Present Illness
General
Chief Complaint: Urinary Symptoms
Source: patient
Exam Limitations: none
Time Seen by Provider: 06/20/24 08:05
History of Present Illness
History of Present Illness:
84-year-old female complaining of hematuria and lower abdominal pressure. Started yesterday. No true pain no fever no flank pain or back pain. No history of same. Currently being treated for breast cancer.
Past History
Past History
ED Past Medical History: Cancer (Breast cancer) and Other (History of stone in her gallbladder and stone in her kidney diagnosed by ultrasound years ago)
ED Past Surgical History: Appendectomy, Gynecological (Lumpectomy), Orthopedic (Hip replacement) and Other (Cataract surgery. Melanoma surgery)
Social History
Tobacco: Non-smoker
Alcohol: Daily (Wine One glass)
Drug: None
Personal:
Living: with family
Employment: Retired
Family History
Family History: Other (n/c)
Review of Systems
Review of Systems
All Other Systems: Not applicable
Constitutional: Denies fever
Respiratory: Reports no symptoms
Cardiac: Reports no symptoms
Phy Exam
Physical Exam
Physical Exam:
GENERAL: Alert and oriented in no apparent distress
EYE: Orbits normal.
NECK: Supple
CARDIAC: Regular rate and rhythm without any obvious murmurs. Port left upper chest wall
LUNGS: Clear breath sounds,normal
ABDOMEN: Soft, bowel sounds present. No distention. Very minimal suprapubic tenderness. No distention
NEUROLOGICAL: Alert and oriented , grossly non-focal
SKIN: Warm and dry, no rash or lesion, no discoloration, skin intact.
MUSCULOSKELETAL: No edema,no deformity.Good color
PSYCH: Normal and appropriate interaction.
Course
Orders/Labs/Results
Orders:
Orders
06/20/24 08:27
CT Abd/pelvis W/wo Iv Cont Urgent
Comment:
Reason For Exam: Gross hematuria/lower abdominal pain
IV Insert/Care/Rem.- Treatment PRN
0.9% Sodium Chloride 500 ml [Nss] 500 ml IV BOLUS
06/20/24 08:49
Complete Blood Count/With Diff Urgent
Comprehensive Metabolic Panel Urgent
06/20/24 09:18
Urinalysis Reflex To Culture Urgent
Date Specimen was Collected: 06/20/24
Time Specimen was Collected: 09:17
Urine Microscopic Reflex Cult Urgent
Urine Culture Urgent
DARIEL Source: U
Specimen Description:
Date Specimen was Collected: 06/20/24
Time Specimen was Collected: 09:17
06/20/24 12:47
CefTRIAXone [Rocephin] 1,000 mg IV NOW STA
06/20/24 13:09
UROLOGY CONSULT Routine
Consulting Provider: Ron Aparicio
Was physician already notified: Yes
Comment: hematuria
Abnormal Lab Results
06/20/24 06/20/24
08:49 09:18
RBC 3.93 L 10^6/uL
(4.20-5.40)
Hct 36.5 L %
(37.0-47.0)
MCH 31.3 H pg
(27.0-31.0)
Absolute Neuts (auto) 7.2 H 10^3/uL
(1.4-6.5)
Absolute Lymphs (auto) 0.4 L 10^3/uL
(1.2-3.4)
Neutrophils % 87.1 H %
(42.2-75.2)
Lymphocytes % 5.3 L %
(20.5-51.1)
Glucose 123 H mg/dl
(70-99)
Urine Ketones Trace A
(Negative)
Ur Occult Blood Reflex 4+ A
(Negative)
Urine Nitrite (Reflex) Positive A
(Negative)
Urine Bilirubin 1+ A
(Negative)
Leukocyte Esterase Rfl 1+ A
(Negative)
Urine RBC 80-90 A /HPF
(0-2)
Urine Bacteria (Reflex) Few A
(Negative)
Urine Albumin (Reflex) 2+ A
(Neg - Trace)
06/20/24 08:49
06/20/24 08:49
Vital Signs
Initial and Last Documented VS:
Initial Vital Signs
Temp Pulse Resp BP Pulse Ox
98.3 F 68 18 159/71 96
06/20/24 08:00 06/20/24 08:00 06/20/24 08:00 06/20/24 08:00 06/20/24 08:00
Last Documented Vital Signs
Temp Pulse Resp BP Pulse Ox
98.3 F 74 24 161/70 96
06/20/24 08:00 06/20/24 13:06 06/20/24 13:06 06/20/24 13:05 06/20/24 11:02
MDM/Problems Addressed
Differential Diagnosis Includes:
Gross hematuria. Differential would include hemorrhagic cystitis. Kidney stone, pyelonephritis, urologic tract cancer. Workup in progress
*Pulse Oximetry
Patient hypoxic: no
*Critical Care Note
Total Time (30-74mins, 75-104mins- exclusive of procedures): Not Applicable
Data Reviewed
Review of Other/Old Records Reveals: Labs, Records and Testing
ED Attending Note
-
Portions of this chart may have been created with voice recognition software.� Occasional wrong word or��sound alike� substitutions may have occurred due to the inherent limitations of voice recognition software.
Discharge Plan
Departure
Patient Disposition: Admit
Date of Disposition: 06/20/24
Time of Disposition: 12:51
Presentation/result/management discussed w/ accepting MD/DO: Urology
Discharge Problem:
Gross hematuria/UTI, Intrarenal bleeding/clot
Prescriptions:
No Action
loperamide [Imodium] 2 mg Capsule
2 mg PO Q4HPRN PRN (Reason: diarrhea)
metoprolol succinate 25 mg tablet extended release 24 hr
25 mg PO HS
miconazole nitrate [Neosporin AF] 2 % Cream
1 applic TOPICAL DAILY
acetaminophen [Tylenol Extra Strength] 500 mg Tablet
1,000 mg PO QIDPRN PRN (Reason: mild pain)
furosemide 20 mg Tablet
20 mg PO TUSA
letrozole 2.5 mg Tablet
2.5 mg PO DAILY
nitrofurantoin monohyd/m-cryst 100 mg Capsule
100 mg PO BID
Patient Comments:
06/20/24: started 06/19/24, to take 1 cap twice a day for 5 days
Referrals:
Andrés Medrano MD [Family Provider] -
Interventions
Interventions:
*Risk Screen - Suicide Last Done: 06/20/24 09:16
*General Assessment Last Done: 06/20/24 09:15
*Neglect/Abuse Screening Last Done: 06/20/24 09:16
*ED COVID-19 Vaccine History Last Done: 06/20/24 09:16
ED-Female Genitourinary Assessment Last Done: 06/20/24 11:09
Discharge Date and Time
Print Language: SOMALI
[2024-06-20] MEDS: NSS 500 IV (09:00)
[2024-06-20 09:02] LABS: % Basophils 0.6 % (0-2); % Eosinophils 0.2 % (0-6); % Immature Granulocytes 0.4 % (0-0.5); % Lymphocytes 5.3 % (20.5-51.1); % Monocytes 6.4 % (1.7-9.3); % Neutrophils 87.1 % (42.2-75.2); Absolute Basophils 0.1 10^3/uL (0-0.2); Absolute Lymphocytes 0.4 10^3/uL (1.2-3.4); Absolute Monocytes 0.5 10^3/uL (0.1-0.6); Absolute Neutrophils 7.2 10^3/uL (1.4-6.5); Hematocrit 36.5 % (37.0-47.0); Hemoglobin 12.3 g/dL (12.0-16.0); Mean Corp Hgb Conc. 33.7 g/dL (33.0-37.0); Mean Corpuscular Hgb 31.3 pg (27.0-31.0); Mean Corpuscular Volume 92.9 fL (81.0-99.0); Mean Platelet Volume 10.4 fL (7.4-10.4); Nucleated Red Blood Cells % 0 %; Platelet Count 139 10^3/uL (130-400); Red Blood Cell Count 3.93 10^6/uL (4.20-5.40); Red Cell Dist. Width 12.3 % (11.5-14.5); White Blood Cell Count 8.3 10^3/uL (4.8-10.8)
[2024-06-20 09:06] LABS: ALT (SGPT) 21 U/L (0-35); AST (SGOT) 33 U/L (14-36); Albumin 4.3 g/dl (3.5-5.0); Alkaline Phosphatase 69 U/L (38-126); Blood Urea Nitrogen 17 mg/dl (7-17); Calcium 9.6 mg/dl (8.4-10.2); Carbon Dioxide 30 mmol/L (22-30); Chloride 106 mmol/L (98-107); Glucose 123 mg/dl (70-99); Potassium 3.6 mmol/L (3.5-5.1); Sodium 140 mmol/L (135-145); Total Protein 6.9 g/dl (6.3-8.2); eGFR 56.25
[2024-06-20 09:39] LABS: Urine Albumin 2+ (Neg - Trace); Urine Bilirubin 1+ (Negative); Urine Character Very Cloudy (Clear); Urine Color Brown; Urine Glucose Negative (Negative); Urine Ketone Trace (Negative); Urine Leukocyte 1+ (Negative); Urine Nitrite Positive (Negative); Urine Occult Blood 4+ (Negative); Urine Urobilinogen Negative (Neg - 1+); Urine pH 6.5 (5.0-9.0)
[2024-06-20 09:51] LABS: Urine Bacteria Few (Negative); Urine Red Blood Cell 80-90 /HPF (0-2); Urine Squamous Cell 0-2 /LPF (Few)
[2024-06-20] MEDS: ROCEPHIN 1000 MG IV (13:04)
--- NOTE | 2024-06-20 13:05 | HPS.HSE ---
Family Physician
-
Family Physician: Andrés Medrano
Chief Complaint
-
Hematuria
History of Present Illness
83 y/o F with no reported PMHx other than breast CA (as per discussion with pt and ) who p/w CC hematuria. Yesterday the patient began having dark urine. She went to urgent care and was started on Macrodantin. During the night she had
abdominal pressure, greatest in the lower abdomen, and started having elizabeth hematuria. She denies any other acute complaints. Denies chest pain, shortness of breath, dysuria.
Medical History
Past Medical History
Past Medical History: Reports Other (as per HPI)
Past Surgical History: Reports Other (N/A)
Social History
Tobacco: Non-smoker
Alcohol: Daily
Drug: None
Family History
Family History: Not pertinent
Allergies / Home Medications
Allergies reflects when Allergies were last updated in [employer].
Home Medications with original date entered in [employer]
Allergy/Medication List:
Allergies
Allergy/AdvReac Type Severity Reaction Status Date / Time
adhesive Allergy redness Verified 06/20/24 08:00
bacitracin Allergy Hives Verified 06/20/24 08:00
[From Polysporin(bacitracin
base)]
ciprofloxacin [From Cipro] Allergy diarrhea Verified 06/20/24 08:00
ciprofloxacin HCl Allergy diarrhea Verified 06/20/24 08:00
[From Cipro]
latex Allergy Rash Verified 06/20/24 08:00
mineral oil Allergy Rash Verified 06/20/24 08:00
polymyxin B Allergy Hives Verified 06/20/24 08:00
[From Polysporin(bacitracin
base)]
procaine [From Novocain] Allergy Swelling Verified 06/20/24 08:00
phuong nuts/peach skin Allergy tingling Uncoded 11/07/23 07:04
in mouth
tree/pollen Allergy sneezing Uncoded 11/07/23 07:04
congestion
Home Medications
loperamide 2 mg capsule 2 mg PO Q4HPRN PRN diarrhea 11/03/23
metoprolol succinate 25 mg tablet,extended release 24 hr 25 mg PO HS 02/07/24
acetaminophen 500 mg tablet (Tylenol Extra Strength) 1,000 mg PO QIDPRN PRN mild pain 06/20/24
furosemide 20 mg tablet 20 mg PO TUSA 06/20/24
letrozole 2.5 mg tablet 2.5 mg PO DAILY 06/20/24
miconazole nitrate 2 % topical cream 1 applic topical DAILY port scap until healed 06/20/24
nitrofurantoin monohydrate/macrocrystals 100 mg capsule 100 mg PO BID 06/20/24
Review of Systems
-
History Source: Patient
A 12 point ROS was completed and negative except as noted: Yes
Physical Exam
Vital Signs
Vital Signs
Temp Pulse Resp BP Pulse Ox
98.3 F 73 19 154/98 96
06/20/24 08:00 06/20/24 11:15 06/20/24 11:15 06/20/24 11:00 06/20/24 11:02
Physical Exam
General: Other (.)
Laboratory Results
-
06/20/24 08:49
06/20/24 08:49
Laboratory Results
Total Bilirubin 1.0 mg/dl (0.2-1.3) 06/20/24 08:49
AST 33 U/L (14-36) 06/20/24 08:49
ALT 21 U/L (0-35) 06/20/24 08:49
Alkaline Phosphatase 69 U/L (38-126) 06/20/24 08:49
Impression/Plan
-
Gen: NAD, Awake and alert, appears chronically ill
Eyes: EOMI, PERRLA, no scleral icterus.
Neck: supple.
CV: RRR, +S1/S2, no m/r/g.
Resp: CTAB, no rales, wheezes, or rhonchi.
Abd: +BS, soft, suprapubic TTP, ND
Skin: No rashes. Trace LLE edema.
Neuro: CN 2-12 intact, non-focal.
Psych: anxious
CT A/P:
1. Moderate left hydronephrosis. Layering abnormally increased attenuation material within the left renal collecting system on the noncontrast images, most likely clot. There is also increased attenuation within the mildly dilated proximal left
ureter. No active hemorrhage is identified at CT. There is bilateral nephrolithiasis.
2. Very small right pleural effusion and adjacent atelectasis.
3. Cholelithiasis.
4. Mild chronic compression deformities T12 on L1.
Acute hematuria:
-c/s Uro
-case discussed with Dr. Aparicio who states that L renal/ureteral bleeding will likely resolve on it's own without intervention
-afebrile, no leukocytosis, 3-5 WBC in U/A. ER gave Rocephin. Not seeing evidence of acute UTI. Will d/w Uro.
-trend Hb
Cont home meds of BB/PPI.
FULL/SCDs
[2024-06-20] MEDS: ZOFRAN 4 MG IV (13:43)
[2024-06-20] MEDS: OFIRMEV 100 IV (13:44)
--- NOTE | 2024-06-20 17:15 | CONS.URO ---
Consultation
-
Date/Time Consultation Requested: 06/20/24
Date/Time Consultation Performed: 06/20/24 1700
Requesting Provider: Domenica
Performing Provider: Alessandra
Reason for Consultation: left intrarenal bleeding, hematuria
Medical History
History of Present Illness
83F in good health presents w/ 24 hrs of hematuria.
Dark urine noted yesterday - seen @ and started on Macrodantin for empiric treatment of UTI.
O/n, she noted lower abdominal pressure and elizabeth hematuria.
Small clot passage also noted.
Denies F/C/N/V or flank pain.
Past Medical History
Past Medical History: Cancer (breast cancer (diagnosed 2022) s/p lumpectomy and adjuvant chemotherapy)
Past Surgical History: Other (right lumpectomy + LN mapping, [id number] insertion (2022))
Social History
Tobacco: Non-smoker
Alcohol: None
Drug: None
Personal:
Living: With Family
Employment: Retired
Family History
Family History: Reviewed & Not Pertinent
Allergies/Home Medications
Allergies
Allergy/AdvReac Type Severity Reaction Status Date / Time
adhesive Allergy redness Verified 06/20/24 08:00
bacitracin Allergy Hives Verified 06/20/24 08:00
[From Polysporin(bacitracin
base)]
ciprofloxacin [From Cipro] Allergy diarrhea Verified 06/20/24 08:00
ciprofloxacin HCl Allergy diarrhea Verified 06/20/24 08:00
[From Cipro]
latex Allergy Rash Verified 06/20/24 08:00
mineral oil Allergy Rash Verified 06/20/24 08:00
polymyxin B Allergy Hives Verified 06/20/24 08:00
[From Polysporin(bacitracin
base)]
procaine [From Novocain] Allergy Swelling Verified 06/20/24 08:00
phuong nuts/peach skin Allergy tingling Uncoded 11/07/23 07:04
in mouth
tree/pollen Allergy sneezing Uncoded 11/07/23 07:04
congestion
Home Medications
�Medication �Instructions �Recorded �Confirmed �Type
loperamide 2 mg capsule 2 mg PO Q4HPRN PRN diarrhea 11/03/23 06/20/24 History
metoprolol succinate 25 mg 25 mg PO HS 02/07/24 06/20/24 History
tablet,extended release 24 hr
acetaminophen 500 mg tablet 1,000 mg PO QIDPRN PRN mild pain 06/20/24 06/20/24 History
(Tylenol Extra Strength)
furosemide 20 mg tablet 20 mg PO TUSA 06/20/24 06/20/24 History
letrozole 2.5 mg tablet 2.5 mg PO DAILY 06/20/24 06/20/24 History
miconazole nitrate 2 % topical 1 applic topical DAILY port scap 06/20/24 06/20/24 History
cream until healed
nitrofurantoin 100 mg PO BID 06/20/24 06/20/24 History
monohydrate/macrocrystals 100 mg
capsule
Review of Systems
-
History Source: Patient and Family
A 12 point Review of Systems was completed except as noted: Yes
Physical Exam
Vital Signs
Vital Signs
Temp Pulse Resp BP Pulse Ox
97.7 F 63 16 146/61 96
06/20/24 17:13 06/20/24 17:13 06/20/24 17:13 06/20/24 17:13 06/20/24 17:31
Lab / Testing Results
Laboratory Results
06/20/24 08:49
06/20/24 08:49
Physical Exam
General: Well Developed, Well Nourished and No Apparent Distress
HEENT: Normocephalic and Anicteric
Respiratory: Non Labored Respirations
Cardiac: S1/S2
Breast: Deferred by me
GI: Soft, Non Tender and Non Distended
Rectal: Deferred by Provider
Genito-urinary: No Costovertebral Tend and Bloody Urine
Musculoskeletal: No Edema
Skin: Warm and Dry
Neuro: AO x 3, No Motor Deficits and Nonfocal/Grossly Intact
Hematologic/Lymphatic: No Lymphadenopathy
Psych: Calm and Intact Judgement
Assessment / Plan
-
Left intrarenal bleed
Moderate left hydronephrosis secondary to collecting system clots
Hematuria
WBC WNL
H/H >12
Cr WNL
Urine dip 3-5 WBCs, numerous RBCs, +nitrites
CTAP w/wo IV contrast:
Moderate left hydronephrosis. Layering abnormally increased attenuation material within the left renal collecting system on the noncontrast images, most likely clot. There is also increased attenuation within the mildly dilated proximal left ureter.
No active hemorrhage is identified at CT. There is bilateral nephrolithiasis.
Review of CT imaging w/ IV contrast and delayed phase demonstrates no active bleeding/hemorrhage.
No renal or collecting system masses noted - attenuation of products more c/w clots from recent intrarenal bleed.
HDS without evidence of acute blood loss anemia.
Voiding 'darker' and 'wine-colored urine' w/ small clots upon exam this late afternoon.
Suspect lower abdominal pressure from passage of lysing clot products.
Moderate left hydronephrosis w/o LA or left flank pain.
- No indication for urologic intervention
- With improving hematuria, conservative management recommended
- F/U UCx to r/o UTI
- Trend H/H and Cr - if hemodynamic instability or precipitous change in H/H, will require IR for CT Angio and embolization
- Will need CT Urogram in 1 mo after hematuria has resolved to definitively r/o left upper tract tumor (will coordinate as outpatient)
Discussed plan of are at length w/ patient and spouse.
D/w RN.
Data Reviewed
-
Total Time Spent with Patient (in minutes): 65
CT Scan: Image personally visualized and interpreted, Report Reviewed by Me, Discussed with Physician, Discussed with Patient and Discussed with Family
Lab Data: Labs Reviewed, Discussed with Physician, Discussed with Nurse, Discussed with Patient and Discussed with Family
Old Records: Reviewed
[2024-06-20] MEDS: TOPROL XL 25 MG PO (21:56)
[2024-06-21 08:14] VITALS: BP 134/55
[2024-06-21 08:31] LABS: Hematocrit 33.7 % (37.0-47.0); Hemoglobin 11.5 g/dL (12.0-16.0); Mean Corp Hgb Conc. 34.1 g/dL (33.0-37.0); Mean Corpuscular Hgb 31.7 pg (27.0-31.0); Mean Corpuscular Volume 92.8 fL (81.0-99.0); Platelet Count 126 10^3/uL (130-400); Red Blood Cell Count 3.63 10^6/uL (4.20-5.40); Red Cell Dist. Width 12.6 % (11.5-14.5); White Blood Cell Count 11.6 10^3/uL (4.8-10.8)
[2024-06-21] MEDS: FEMARA 2.5 MG PO (08:58)
[2024-06-21 09:01] LABS: Blood Urea Nitrogen 21 mg/dl (7-17); Calcium 9.2 mg/dl (8.4-10.2); Carbon Dioxide 26 mmol/L (22-30); Chloride 104 mmol/L (98-107); Estimated Creatinine Clearance 28 ml/min; Glucose 102 mg/dl (70-99); Potassium 3.5 mmol/L (3.5-5.1); Sodium 136 mmol/L (135-145); eGFR 37.56
--- NOTE | 2024-06-21 09:51 | W.PN.HOSP.TC ---
Today's Communication/Plan
-
see plan
Assessment / Plan
Assessment / Plan
Gen: remains NAD, Awake and alert, appears chronically ill
Eyes: EOMI, PERRLA, no scleral icterus.
Neck: supple.
CV: RRR, +S1/S2, no m/r/g.
Resp: CTAB, no rales, wheezes, or rhonchi.
Abd: +BS, soft, NT, ND
Skin: No rashes. Trace LLE edema.
Neuro: CN 2-12 intact, non-focal.
Psych: normal mood and affect
CT A/P:
1. Moderate left hydronephrosis. Layering abnormally increased attenuation material within the left renal collecting system on the noncontrast images, most likely clot. There is also increased attenuation within the mildly dilated proximal left
ureter. No active hemorrhage is identified at CT. There is bilateral nephrolithiasis.
2. Very small right pleural effusion and adjacent atelectasis.
3. Cholelithiasis.
4. Mild chronic compression deformities T12 on L1.
Acute hematuria:
-c/s Uro
-case discussed with Dr. Aparicio who states that L renal/ureteral bleeding will likely resolve on it's own without intervention
-afebrile, 3-5 WBC in U/A. ER gave Rocephin. Leukocytosis is likely reactive. Not seeing evidence of acute UTI. Uro to order further abx if they feel indicated.
-trend Hb
Cont home meds of BB/PPI.
Pt's updated at bedside.
FULL/SCDs
Anticipated Discharge: Within 24 hours
Subjective/Interval History
-
Date of Service: June 21, 2024
'I feel better today. My stomach feels better today.' Urine cleared last night, now with hematuria again.
Objective Data
-
Labs:
Laboratory Results
06/21/24
06:40
WBC 11.6 H
Hgb 11.5 L
Hct 33.7 L
Plt Count 126 L
Sodium 136
Potassium 3.5
Chloride 104
Carbon Dioxide 26
BUN 21 H
Creatinine 1.4 H
Glucose 102 H
Calcium 9.2
Vital Signs:
Vital Signs
Temp Pulse Resp BP Pulse Ox
98.4 F 65 18 134/55 94
06/21/24 08:14 06/21/24 08:14 06/21/24 08:14 06/21/24 08:14 06/21/24 08:14
--- NOTE | 2024-06-21 12:38 | W.PN.URO.CBU ---
Today's Communication / Plan
-
NPO now (ordered)
STAT CT Abd Angio (ordered)
IR consult for possible embolization pending CT Angio (ordered, d/w Dr. Warner)
Pending evaluation by Nephrology
IVF initiated this AM
D/w patient and spouse.
D/w Hospital Medicine.
D/w Nephrology.
D/w IR.
Assessment / Plan
-
Left intrarenal bleed - persistent w/ bright red hematuria today
Moderate left hydronephrosis secondary to collecting system clots
LA - new
Hematuria - increased
Hgb 12.3 => 11.5
Cr 1.0 => 1.4
CTAP w/wo IV contrast:
Moderate left hydronephrosis. Layering abnormally increased attenuation material within the left renal collecting system on the noncontrast images, most likely clot. There is also increased attenuation within the mildly dilated proximal left ureter.
No active hemorrhage is identified at CT. There is bilateral nephrolithiasis.
Diagnosis
-
Date of Service: June 21, 2024
-
Patient Diagnosis:
Left intrarenal bleed
Moderate left hydronephrosis secondary to collecting system clots
LA
Hematuria
Subjective
-
Denies left flank pain.
No significant lower abdominal pressure today.
Voiding 'bright red urine' today 'without clots.'
Denies N/V.
Objective
-
Vital Signs
Temp Pulse Resp BP Pulse Ox
98.4 F 65 18 134/55 94
06/21/24 08:14 06/21/24 08:14 06/21/24 08:14 06/21/24 08:14 06/21/24 08:14
Intake and Output
08/0806/21/24 06/22/24
06:59 06:59 06:59
Other:
Number of approximated MODERATE 3
amounts of urine
Laboratory Results
06/21/24 06:40
06/21/24 06:40
Physical Exam
-
General - well developed, well nourished, no acute distress
Abdomen - soft, non-tender, no CVAT
Genitalia - normal
Skin - warm & dry with no rash
Neuro - AOx3, no motor deficits
Extremities - no clubbing, no cyanosis, no edema
Care Review
Data Reviewed
Discussed with: Hospitalist, Nursing, IRAD and Family
CT Scan: Report Pers Reviewed and Image Pers Reviewed
Total Time Spent with Patient (in minutes): 45
[2024-06-21] MEDS: NSS 1000 IV ×2 (12:56→22:52)
--- NOTE | 2024-06-21 15:14 | W.CON.NEPH ---
Consultation
-
Date/Time Consultation Requested: June 21, 2024 11 AM
Date/Time Consultation Performed: June 21, 2024 12 PM
Requesting Provider: Dr. Metzger
Performing Provider: Dr. Smith
Reason for Consultation: LA
Medical History
-
Chief Complaint: Gross hematuria
History of Present Illness:
This is a an 83-year-old female with breast cancer status post chemotherapy via a left subclavian port now on Herceptin therapy. She has no other significant past medical history.
Past Medical History
Breast cancer
Port placement
Social History
Tobacco: Non-Smoker
Alcohol: Daily
Family History
Family History: Not Pertinent
Allergies / Home Medications
Allergy/AdvReac Type Severity Reaction Status Date / Time
adhesive Allergy redness Verified 06/20/24 08:00
bacitracin Allergy Hives Verified 06/20/24 08:00
[From Polysporin(bacitracin
base)]
ciprofloxacin [From Cipro] Allergy diarrhea Verified 06/20/24 08:00
ciprofloxacin HCl Allergy diarrhea Verified 06/20/24 08:00
[From Cipro]
latex Allergy Rash Verified 06/20/24 08:00
mineral oil Allergy Rash Verified 06/20/24 08:00
polymyxin B Allergy Hives Verified 06/20/24 08:00
[From Polysporin(bacitracin
base)]
procaine [From Novocain] Allergy Swelling Verified 06/20/24 08:00
phuong nuts/peach skin Allergy tingling Uncoded 11/07/23 07:04
in mouth
tree/pollen Allergy sneezing Uncoded 11/07/23 07:04
congestion
�Medication �Instructions �Recorded �Confirmed �Type
loperamide 2 mg capsule 2 mg PO Q4HPRN PRN diarrhea 11/03/23 06/20/24 History
metoprolol succinate 25 mg 25 mg PO HS 02/07/24 06/20/24 History
tablet,extended release 24 hr
acetaminophen 500 mg tablet 1,000 mg PO QIDPRN PRN mild pain 06/20/24 06/20/24 History
(Tylenol Extra Strength)
furosemide 20 mg tablet 20 mg PO TUSA 06/20/24 06/20/24 History
letrozole 2.5 mg tablet 2.5 mg PO DAILY 06/20/24 06/20/24 History
miconazole nitrate 2 % topical 1 applic topical DAILY port scap 06/20/24 06/20/24 History
cream until healed
nitrofurantoin 100 mg PO BID 06/20/24 06/20/24 History
monohydrate/macrocrystals 100 mg
capsule
Review of Systems
-
Gross hematuria
All other systems: Negative unless noted
Physical Exam
Vital Signs
Vital Signs
Temp Pulse Resp BP Pulse Ox
98.4 F 65 18 134/55 94
06/21/24 08:14 06/21/24 08:14 06/21/24 08:14 06/21/24 08:14 06/21/24 08:14
Lab Results
WBC 11.6 10^3/uL (4.8-10.8) H 06/21/24 06:40
RBC 3.63 10^6/uL (4.20-5.40) L 06/21/24 06:40
Hgb 11.5 g/dL (12.0-16.0) L 06/21/24 06:40
Hct 33.7 % (37.0-47.0) L 06/21/24 06:40
Plt Count 126 10^3/uL (130-400) L 06/21/24 06:40
Sodium 136 mmol/L (135-145) 06/21/24 06:40
Potassium 3.5 mmol/L (3.5-5.1) 06/21/24 06:40
Chloride 104 mmol/L (98-107) 06/21/24 06:40
Carbon Dioxide 26 mmol/L (22-30) 06/21/24 06:40
BUN 21 mg/dl (7-17) H 06/21/24 06:40
Creatinine 1.4 mg/dL (0.6-1.0) H 06/21/24 06:40
eGFR 37.56 06/21/24 06:40
Glucose 102 mg/dl (70-99) H 06/21/24 06:40
Calcium 9.2 mg/dl (8.4-10.2) 06/21/24 06:40
Albumin 4.3 g/dl (3.5-5.0) 06/20/24 08:49
Physical Exam
Patient is awake alert oriented and in no distress. Mood and affect were pleasant, insight and judgment were good. Pupils are equal round and reactive to light, extraocular movements are intact, sclera were anicteric. Hearing was normal, ears and
nose are intact. Oropharynx was clear. Neck was supple with trachea midline and no thyromegaly. Heart was regular rate and rhythm without rubs. Lower extremities without edema. Lungs were clear to auscultation bilaterally and with normal
excursion. Abdomen was soft, nontender, with normal active bowel sounds, and no hepatosplenomegaly. Skin was without rash and with normal turgor.
Data Reviewed
-
CT Scan: Report Reviewed by me (CT abdomen and pelvis with IV contrast on June 20, 2024 shows moderate left hydronephrosis with layering material in the left renal collecting system, bilateral kidney stones, gallbladder stones, compression
deformity T12-L1)
Ultrasound: Report Reviewed by me (Lower extremity Doppler shows no left DVT)
Labs: Labs Reviewed by me (Hemoglobin 11.5, creatinine 1.4, potassium 3.5, urinalysis with pH 6.5, specific gravity 1.020, 4+ blood trace ketone positive nitrite 90 red blood cells, 2+ albumin)
Assessment/Plan
-
Assessment
LA
Gross hematuria
Left hydronephrosis
Breast cancer
Nephrolithiasis
Gallstones
Plan
I discussed with the patient and at great length regarding renal function. She has mild acute kidney injury which may be a result of contrast exposure yesterday. It could also be partly induced by her left hydronephrosis which is likely
due to clot obstruction. There is significant concern that she may have continued bleeding given the persistence of gross hematuria today. An angiogram is recommended to determine whether or not there is indeed active bleeding in the left kidney.
She understands that this does pose additional risk with contrast nephropathy for a second dose of contrast. We discussed this risk as well as mitigation with IV fluids. At this point given the left obstruction and continued gross hematuria, the
benefits of a CTA do outweigh the risks. They agree and are willing to proceed.
Continue IV fluids normal saline at this time
Follow BMP
Total time 60 minutes
[2024-06-21 15:25] VITALS: BP 139/60
[2024-06-21] MEDS: TOPROL XL 25 MG PO (21:23)
[2024-06-21 23:36] VITALS: BP 130/65
[2024-06-22 07:45] VITALS: BP 138/66
[2024-06-22] MEDS: NSS 1000 IV ×2 (08:12→23:43)
[2024-06-22] MEDS: FEMARA 2.5 MG PO (08:12)
[2024-06-22] MEDS: LASIX 20 MG PO (08:12)
[2024-06-22 08:53] LABS: Blood Urea Nitrogen 23 mg/dl (7-17); Calcium 8.6 mg/dl (8.4-10.2); Carbon Dioxide 19 mmol/L (22-30); Chloride 107 mmol/L (98-107); Estimated Creatinine Clearance 30 ml/min; Glucose 81 mg/dl (70-99); Potassium 3.6 mmol/L (3.5-5.1); Sodium 135 mmol/L (135-145); eGFR 41.06
--- NOTE | 2024-06-22 09:57 | W.PN.HOSP.TC ---
Today's Communication/Plan
-
see bold
Assessment / Plan
Assessment / Plan
Gen: continues to remain NAD, Awake and alert, appears chronically ill
Eyes: EOMI, PERRLA, no scleral icterus.
Neck: supple.
CV: remains RRR, +S1/S2, no m/r/g.
Resp: remains CTAB, no rales, wheezes, or rhonchi.
Abd: +BS, soft, NT, ND
Skin: No rashes. Trace LLE edema.
Neuro: CN 2-12 intact, non-focal.
Psych: normal mood and affect
CT A/P:
1. Moderate left hydronephrosis. Layering abnormally increased attenuation material within the left renal collecting system on the noncontrast images, most likely clot. There is also increased attenuation within the mildly dilated proximal left
ureter. No active hemorrhage is identified at CT. There is bilateral nephrolithiasis.
2. Very small right pleural effusion and adjacent atelectasis.
3. Cholelithiasis.
4. Mild chronic compression deformities T12 on L1.
CTA A/P 06/21/24:
1. Redemonstration of blood products within the left intrarenal collecting system and left ureter, slightly progressed without evidence for active bleeding.
2. Beaded appearance of the main right renal artery. Cannot rule out fibromuscular dysplasia.
LLE U/S: No sonographic evidence for LEFT lower extremity deep venous thrombosis.
Acute hematuria:
-case discussed multiple times with Dr. Aparicio who states that L renal/ureteral bleeding will likely resolve on it's own without intervention
-afebrile, 3-5 WBC in U/A. ER gave Rocephin. Leukocytosis is likely reactive. UCx contaminated. Not seeing evidence of acute UTI. Uro to order further abx if they feel indicated.
-trend Hb (today's Hb pending)
LA:
-renal following
-due to LEROY (less like L hydro)
-cont IVFs
Cont home meds of BB/PPI.
Pt's updated at bedside.
FULL/SCDs
Anticipated Discharge: 24 - 48 hours
Subjective/Interval History
-
Date of Service: June 22, 2024
Hematuria overnight but none this AM.
Objective Data
-
Labs:
Laboratory Results
06/22/24
06:42
WBC Pending
Hgb Pending
Hct Pending
Plt Count Pending
Sodium 135
Potassium 3.6
Chloride 107
Carbon Dioxide 19 L
BUN 23 H
Creatinine 1.3 H
Glucose 81
Calcium 8.6
Vital Signs:
Vital Signs
Temp Pulse Resp BP Pulse Ox
98 F 81 16 130/65 94
06/22/24 07:45 06/22/24 08:12 06/22/24 07:45 06/22/24 08:12 06/22/24 09:15
I&O
06/21/24 06/22/24 06/23/24
06:59 06:59 06:59
Intake Total 240 / 240
Balance 240 / 240
--- NOTE | 2024-06-22 11:36 | W.PN.NEPH.PH ---
Today's Communication / Plan
-
follow BMP
Assessment/Plan
-
Assessment
LA
Gross hematuria
Left hydronephrosis
Breast cancer
Nephrolithiasis
Gallstones
Plan
completed IV NSS [address]
follow BMP
ideally will get BMP this afternoon (24hrs post dye). If stable could theoretically follow Cr on monday
-
-
Date of Service: June 22, 2024
CC / HPI / ROS
-
Chief Complaint:
LA
History of Present Illness:
LA/Cr down to 1.3
s/p CTA without active bleeding
gross hematuria twice overnight, none today
hgb stable
Review of Systems:
no CP/SOB
Labs
-
Labs:
Sodium 135 mmol/L (135-145) 06/22/24 06:42
Potassium 3.6 mmol/L (3.5-5.1) 06/22/24 06:42
Chloride 107 mmol/L (98-107) 06/22/24 06:42
Carbon Dioxide 19 mmol/L (22-30) L 06/22/24 06:42
BUN 23 mg/dl (7-17) H 06/22/24 06:42
Creatinine 1.3 mg/dL (0.6-1.0) H 06/22/24 06:42
eGFR 41.06 06/22/24 06:42
Glucose 81 mg/dl (70-99) 06/22/24 06:42
Calcium 8.6 mg/dl (8.4-10.2) 06/22/24 06:42
Albumin 4.3 g/dl (3.5-5.0) 06/20/24 08:49
Physical Exam
-
Vital Signs:
Vital Signs
Temp Pulse Resp BP Pulse Ox
98 F 81 16 130/65 94
06/22/24 07:45 06/22/24 08:12 06/22/24 07:45 06/22/24 08:12 06/22/24 09:15
Cardiovascular:: Regular rate and rhythm
Respiratory:: Bilateral: Coarse
Lung Excursion:: Normal
Abdomen:: Nontender and Soft
Bowel Sounds:: Normal
Extremity Edema:: None: Bilateral:
--- NOTE | 2024-06-22 13:04 | W.PN.URO.CBU ---
Today's Communication / Plan
-
- Stable for discharge from standpoint
- Outpatient follow up for further workup of L renal bleed
- Asymptomatic mixed bacteriuria - further antibiotics not necessary
Assessment / Plan
-
83F with spontaneous Left intrarenal bleed
Moderate left hydronephrosis secondary to collecting system clots
LA
Hematuria resolving today
No visible contrast extravasation on angiogram 06/21 during episode of greater hematuria
Hgb stable with no downward trend - further evidence of minimal blood loss
Creatinine 1.4 --> 1.3 improved mild LA probably related to partial clot obstruction of kidney
- Stable for discharge from standpoint
- Outpatient follow up for further workup of L renal bleed. Based on imaging this is likely spontaneous but will need either repeat CT Urogram or ureteroscopy to confirm benign nature
- Asymptomatic mixed bacteriuria - further antibiotics not necessary
Diagnosis
-
Date of Service: June 22, 2024
-
Patient Diagnosis:
Left intrarenal bleed
Moderate left hydronephrosis secondary to collecting system clots
LA
Hematuria
Subjective
-
No pain today
Hematuria was mostly resolved x24 hours then some recurrence of dark stringy clot this afternoon
No voiding difficulty
No dysuria
Objective
-
Vital Signs
Temp Pulse Resp BP Pulse Ox
98 F 81 16 130/65 94
06/22/24 07:45 06/22/24 08:12 06/22/24 07:45 06/22/24 08:12 06/22/24 09:15
Intake and Output
06/21/24 06/22/24 06/23/24
06:59 06:59 06:59
Intake Total 240 / 240
Balance 240 / 240
Intake:
Oral fluids 240 / 240
Other:
Number of approximated MODERATE 3 3 3
amounts of urine
Physical Exam
-
General - well developed, well nourished, no acute distress
Chest - clear
Abdomen - soft, non-tender
[2024-06-22 13:05] LABS: Hematocrit 34.8 % (37.0-47.0); Mean Corp Hgb Conc. 34.5 g/dL (33.0-37.0); Mean Corpuscular Hgb 32.3 pg (27.0-31.0); Mean Corpuscular Volume 93.5 fL (81.0-99.0); Mean Platelet Volume 10.9 fL (7.4-10.4); Platelet Count 123 10^3/uL (130-400); Red Blood Cell Count 3.72 10^6/uL (4.20-5.40); Red Cell Dist. Width 12.3 % (11.5-14.5); White Blood Cell Count 8.7 10^3/uL (4.8-10.8)
[2024-06-22 15:40] VITALS: BP 129/60
[2024-06-22 15:53] LABS: Blood Urea Nitrogen 21 mg/dl (7-17); Calcium 8.6 mg/dl (8.4-10.2); Carbon Dioxide 26 mmol/L (22-30); Chloride 104 mmol/L (98-107); Estimated Creatinine Clearance 33 ml/min; Glucose 160 mg/dl (70-99); Potassium 3.3 mmol/L (3.5-5.1); Sodium 134 mmol/L (135-145); eGFR 45.19
--- NOTE | 2024-06-22 17:11 | CM ---
CM met with Deedee to complete IA. She and her live together in a 2 story home with 3 entry steps. The second level is about 14 steps to the top. Deedee has a RW, SPC, elevated toilet seat with rails at home. She is not interested in
home care and intends to return home with her at discharge.
Plan: Discharge to home with no needs; CM to continue to follow in the event needs change.
PCP: Andrés Medrano
Pharmacy: [facility] in [place]
[2024-06-22 20:54] VITALS: BP 118/58
[2024-06-22] MEDS: KCL 40 MEQ PO (21:04)
[2024-06-22] MEDS: TOPROL XL 25 MG PO (21:04)
[2024-06-22 23:32] VITALS: BP 133/65
[2024-06-23 06:00] VITALS: BMI 20.3
[2024-06-23 06:55] LABS: Hematocrit 30.8 % (37.0-47.0); Hemoglobin 10.8 g/dL (12.0-16.0); Mean Corp Hgb Conc. 35.1 g/dL (33.0-37.0); Mean Corpuscular Hgb 31.2 pg (27.0-31.0); Mean Platelet Volume 11.1 fL (7.4-10.4); Platelet Count 123 10^3/uL (130-400); Red Blood Cell Count 3.46 10^6/uL (4.20-5.40); Red Cell Dist. Width 12.1 % (11.5-14.5); White Blood Cell Count 5.6 10^3/uL (4.8-10.8)
[2024-06-23 07:08] LABS: Blood Urea Nitrogen 21 mg/dl (7-17); Carbon Dioxide 23 mmol/L (22-30); Chloride 109 mmol/L (98-107); Estimated Creatinine Clearance 39 ml/min; Glucose 97 mg/dl (70-99); Potassium 3.7 mmol/L (3.5-5.1); Sodium 137 mmol/L (135-145); eGFR 56.25
[2024-06-23 07:45] VITALS: BP 158/71
[2024-06-23] MEDS: FEMARA 2.5 MG PO (08:50)
[2024-06-23] MEDS: NSS IV (08:50)
--- NOTE | 2024-06-23 11:40 | W.PN.NEPH.PH ---
Today's Communication / Plan
-
follow BMP
Assessment/Plan
-
Assessment
LA
Gross hematuria
Left hydronephrosis
Breast cancer
Nephrolithiasis
Gallstones
Plan
cap IVF
follow BMP
no active bleeding, so continued gross hematuria may simple be passage of existing blood from left kidney
ok for dc from renal standpoint
-
-
Date of Service: June 23, 2024
CC / HPI / ROS
-
Chief Complaint:
LA
History of Present Illness:
LA/Cr down to 1.0
s/p CTA without active bleeding
gross hematuria again
hgb lower at 10.8
Review of Systems:
no CP/SOB
Labs
-
Labs:
WBC 5.6 10^3/uL (4.8-10.8) 06/23/24 06:34
RBC 3.46 10^6/uL (4.20-5.40) L 06/23/24 06:34
Hgb 10.8 g/dL (12.0-16.0) L 06/23/24 06:34
Hct 30.8 % (37.0-47.0) L 06/23/24 06:34
Plt Count 123 10^3/uL (130-400) L 06/23/24 06:34
Sodium 137 mmol/L (135-145) 06/23/24 06:34
Potassium 3.7 mmol/L (3.5-5.1) 06/23/24 06:34
Chloride 109 mmol/L (98-107) H 06/23/24 06:34
Carbon Dioxide 23 mmol/L (22-30) 06/23/24 06:34
BUN 21 mg/dl (7-17) H 06/23/24 06:34
Creatinine 1.0 mg/dL (0.6-1.0) 06/23/24 06:34
eGFR 56.25 06/23/24 06:34
Glucose 97 mg/dl (70-99) 06/23/24 06:34
Calcium 9.0 mg/dl (8.4-10.2) 06/23/24 06:34
Albumin 4.3 g/dl (3.5-5.0) 06/20/24 08:49
Physical Exam
-
Vital Signs:
Vital Signs
Temp Pulse Resp BP Pulse Ox
98.1 F 71 16 158/71 96
06/23/24 07:45 06/23/24 07:45 06/23/24 07:45 06/23/24 07:45 06/23/24 09:00
Cardiovascular:: Regular rate and rhythm
Respiratory:: Bilateral: Coarse
Lung Excursion:: Normal
Abdomen:: Nontender and Soft
Bowel Sounds:: Normal
Extremity Edema:: None: Bilateral:
--- NOTE | 2024-06-23 11:40 | W.PN.HOSP.TC ---
Today's Communication/Plan
-
Discharge
BMP, CBC next week
Assessment / Plan
Assessment / Plan
CT A/P:
1. Moderate left hydronephrosis. Layering abnormally increased attenuation material within the left renal collecting system on the noncontrast images, most likely clot. There is also increased attenuation within the mildly dilated proximal left
ureter. No active hemorrhage is identified at CT. There is bilateral nephrolithiasis.
2. Very small right pleural effusion and adjacent atelectasis.
3. Cholelithiasis.
4. Mild chronic compression deformities T12 on L1.
CTA A/P 06/21/24:
1. Redemonstration of blood products within the left intrarenal collecting system and left ureter, slightly progressed without evidence for active bleeding.
2. Beaded appearance of the main right renal artery. Cannot rule out fibromuscular dysplasia.
LLE U/S: No sonographic evidence for LEFT lower extremity deep venous thrombosis.
CVS: S1-S2 normal
Chest: CTA B/L
Abdomen: Soft, NT , No CVA tenderness,Bowel sounds present
Extremities: No edema
#Acute hematuria:
-Resolving
-afebrile, 3-5 WBC in U/A. ER gave Rocephin. Leukocytosis is likely reactive. UCx contaminated. Not seeing evidence of acute UTI.
# Hypokalemia resolved
# Hyponatremia resolved
#LA-resolved
# Hypertension-continue metoprolol
# Anemia-likely secondary to acute blood loss from hematuria
# cholelithiasis
# Stage II diastolic dysfunction on echo
As needed Lasix
# Valvular heart disease-moderate AI ,mild to moderate TR, pulmonary pressure 35 to 40 mmHg.
#Chronic compression deformities T12 and L1
# History of melanoma
# Diverticulosis
# History of right breast cancer with lumpectomy- Getting Herceptin injections and also now on letrozole
#FULL CODE
#DVT Prophylaxis- SCDs
Discussed with at bedside
Discussed with nursing
Discussed with urology-okay for discharge
Discussed about getting lab work done next week. Patient and stated that she has Herceptin infusions every 3 weeks and she is due to get lab work done for that next week. CBC and CMP will be done as part of that. Therefore I did not give
a prescription.
Total discharge coordination time more than 30 minutes
Anticipated Discharge: Today
Subjective/Interval History
-
Date of Service: June 23, 2024
Objective Data
-
Labs:
Laboratory Results
06/23/24
06:34
WBC 5.6
Hgb 10.8 L
Hct 30.8 L
Plt Count 123 L
Sodium 137
Potassium 3.7
Chloride 109 H
Carbon Dioxide 23
BUN 21 H
Creatinine 1.0
Glucose 97
Calcium 9.0
Vital Signs:
Vital Signs
Temp Pulse Resp BP Pulse Ox
98.1 F 71 16 158/71 96
06/23/24 07:45 06/23/24 07:45 06/23/24 07:45 06/23/24 07:45 06/23/24 09:00
I&O
06/22/24 06/23/24 06/24/24
06:59 06:59 06:59
Intake Total 240 / 240 120 / 120
Balance 240 / 240 120 / 120
--- NOTE | 2024-06-23 11:51 | W.PN.URO.CBU ---
Today's Communication / Plan
-
Outpatient follow up for further hematuria workup
Assessment / Plan
-
83F with spontaneous Left intrarenal bleed
Moderate left hydronephrosis secondary to collecting system clots
LA
Hematuria stable No difficulty emptying bladder, urine light red with some small clots
No visible contrast extravasation on angiogram 06/21 during episode of greater hematuria
Hgb decreased today but within expected fluctuating range compared to day prior
LA resolved and no flank pain
- Stable for discharge from standpoint
- Outpatient follow up for further workup of L renal bleed. Based on imaging this is likely spontaneous but will need either repeat CT Urogram or ureteroscopy to confirm benign nature
- Asymptomatic mixed bacteriuria - further antibiotics not necessary
Office will call to schedule short term follow up
Diagnosis
-
Date of Service: June 23, 2024
-
Patient Diagnosis:
Post Op Day:
Patient Diagnosis:
Left intrarenal bleed
Moderate left hydronephrosis secondary to collecting system clots
LA
Hematuria
Subjective
-
feeling well
still some clots with voiding intermittently
Objective
-
Vital Signs
Temp Pulse Resp BP Pulse Ox
98.1 F 71 16 158/71 96
06/23/24 07:45 06/23/24 07:45 06/23/24 07:45 06/23/24 07:45 06/23/24 09:00
Intake and Output
06/22/24 06/23/24 06/24/24
06:59 06:59 06:59
Intake Total 240 / 240 120 / 120
Balance 240 / 240 120 / 120
Intake:
Oral fluids 240 / 240 120 / 120
Other:
Number of approximated MODERATE 3 5
amounts of urine
Number of unmeasured liquid
stools
Rectum 5
Laboratory Results
06/23/24 06:34
06/23/24 06:34
Physical Exam
-
General - well developed, well nourished, no acute distress
Chest - clear
Abdomen - soft, non-tender
--- NOTE | 2024-06-23 12:22 | W.DS.TRANS ---
Addendum entered and electronically signed by Krista Dodge MD 06/24/24 17:36:
Dictation- [id number]
Original Note:
DC Summary - Quality Assurance Supervisor Body
-
Discharge Instructions:
Discharge Diagnosis/Procedures Hematuria (Blood in the urine)
Hypertension
Gallstones
Compression deformity T12 and L1 vertebra
Diet 2 Gram Sodium,Restrict fluids to 64 oz
Activity As tolerated
Driving Restrictions As prior to admission
Specialty Instructions Weigh Daily
Instructions:
Stand-Alone Forms:
Changes to Home Medications: No
Discharge Medications:
DC Medications w/original date entered in [facility]
metoprolol succinate 25 mg tablet,extended release 24 hr 25 mg PO HS Blood Pressure 02/07/24
acetaminophen 500 mg tablet (Tylenol Extra Strength) 1,000 mg PO QIDPRN PRN mild pain 06/20/24
furosemide 20 mg tablet 20 mg PO TUSA Fluid Retention/Swelling 06/20/24
letrozole 2.5 mg tablet 2.5 mg PO DAILY Hormonal Agent 06/20/24
miconazole nitrate 2 % topical cream 1 applic topical DAILY port scap until healed 06/20/24
Home Medication Changes
Pending Results: No
[2024-06-23 12:43] VITALS: BP 141/67
--- NOTE | 2024-06-23 12:50 | CM ---
real estate transaction manager reviewed patient's chart and plan is to home today with spouse.
Plan; Home no needs.
== END 2024-06-23 13:15 | disposition home or self-care (01) | DRG 694 ==
LOC: 4 EAST ACU 12:49
PROVIDERS: ADMITTING PHYSICIAN Internal Medicine; ATTENDING PHYSICIAN Hospitalist; CONSULT PHYSICIAN Specialist; CONSULT PHYSICIAN Surgery; EMERGENCY PHYSICIAN Emergency Medicine; FAMILY PHYSICIAN Family Medicine
DX: N13.2 Hydronephrosis with renal and ureteral calculous obstruction (principal); J98.11 Atelectasis; D62 Acute posthemorrhagic anemia; K80.20 Calculus of gallbladder without cholecystitis without obstruction; I10 Essential (primary) hypertension; R31.0 Gross hematuria; C50.912 Malignant neoplasm of unspecified site of left female breast; N17.9 Acute kidney failure, unspecified
CPT/HCPCS: 74174; 74178; 80048; 80053; 81003; 81015; 85025; 85027; 87086; 93971; 96361; 96374; 99285; Q9967

== ENCOUNTER → 2024-07-01 11:26 | Outpatient (REF) | payer MEDICARE, SELFPAY ==
[2024-07-01 15:51] LABS: ALT (SGPT) 21 U/L (0-35); AST (SGOT) 31 U/L (14-36); Albumin 4.3 g/dl (3.5-5.0); Alkaline Phosphatase 78 U/L (38-126); Blood Urea Nitrogen 16 mg/dl (7-17); Calcium 9.7 mg/dl (8.4-10.2); Carbon Dioxide 31 mmol/L (22-30); Chloride 101 mmol/L (98-107); Glucose 91 mg/dl (70-99); Potassium 3.8 mmol/L (3.5-5.1); Sodium 141 mmol/L (135-145); Total Bilirubin 0.7 mg/dl (0.2-1.3); Total Protein 7.2 g/dl (6.3-8.2); eGFR 56.25
[2024-07-01 18:19] LABS: % Eosinophils 3.3 % (0-6); % Immature Granulocytes 0.5 % (0-0.5); % Lymphocytes 21.5 % (20.5-51.1); % Monocytes 8.9 % (1.7-9.3); % Neutrophils 64.8 % (42.2-75.2); Absolute Basophils 0.1 10^3/uL (0-0.2); Absolute Eosinophils 0.2 10^3/uL (0-0.7); Absolute Lymphocytes 1.3 10^3/uL (1.2-3.4); Absolute Monocytes 0.5 10^3/uL (0.1-0.6); Hemoglobin 12.2 g/dL (12.0-16.0); Mean Corpuscular Hgb 30.7 pg (27.0-31.0); Mean Corpuscular Volume 93.2 fL (81.0-99.0); Mean Platelet Volume 10.8 fL (7.4-10.4); Nucleated Red Blood Cells % 0 %; Platelet Count 240 10^3/uL (130-400); Red Blood Cell Count 3.97 10^6/uL (4.20-5.40); Red Cell Dist. Width 12.3 % (11.5-14.5); White Blood Cell Count 6.1 10^3/uL (4.8-10.8)
== END ==
LOC: HWLAB 11:26
PROVIDERS: ATTENDING PHYSICIAN Internal Medicine Hematology & Oncology; FAMILY PHYSICIAN Physician Assistant Medical; OTHER PHYSICIAN Urology; REFERRING PHYSICIAN Hospitalist
DX: C50.411 Malignant neoplasm of upper-outer quadrant of right female breast (principal); D51.9 Vitamin B12 deficiency anemia, unspecified; M81.0 Age-related osteoporosis without current pathological fracture
CPT/HCPCS: 36415; 80053; 85025

== ENCOUNTER → 2024-07-08 19:03 | Outpatient (REF) | payer MEDICARE, SELFPAY | LOC: MRI 19:03 | PROVIDERS: ATTENDING PHYSICIAN Psychiatry & Neurology Neurology; FAMILY PHYSICIAN Physician Assistant Medical | DX: R41.3 Other amnesia (principal) | CPT/HCPCS: 70553 ==

== ENCOUNTER → 2024-07-23 15:43 | Outpatient (REF) | payer MEDICARE, SELFPAY | LOC: WDC 15:43 | PROVIDERS: ATTENDING PHYSICIAN Family Medicine Geriatric Medicine; FAMILY PHYSICIAN Internal Medicine Hematology & Oncology | DX: C50.211 Malignant neoplasm of upper-inner quadrant of right female breast (principal); Z17.0 Estrogen receptor positive status [ER+]; Z12.31 Encounter for screening mammogram for malignant neoplasm of breast | CPT/HCPCS: 77063; 77067 ==

== ENCOUNTER → 2024-07-24 15:48 | Outpatient (REF) | payer MEDICARE, SELFPAY ==
[2024-07-24 11:02] LABS: % Basophils 0.6 % (0-2); % Eosinophils 4.8 % (0-6); % Immature Granulocytes 0.2 % (0-0.5); % Lymphocytes 24.4 % (20.5-51.1); % Monocytes 7.4 % (1.7-9.3); % Neutrophils 62.6 % (42.2-75.2); Absolute Eosinophils 0.2 10^3/uL (0-0.7); Absolute Lymphocytes 1.2 10^3/uL (1.2-3.4); Absolute Monocytes 0.4 10^3/uL (0.1-0.6); Absolute Neutrophils 3.1 10^3/uL (1.4-6.5); Hematocrit 38.3 % (37.0-47.0); Hemoglobin 12.5 g/dL (12.0-16.0); Mean Corp Hgb Conc. 32.6 g/dL (33.0-37.0); Mean Corpuscular Hgb 31.1 pg (27.0-31.0); Mean Corpuscular Volume 95.3 fL (81.0-99.0); Mean Platelet Volume 9.9 fL (7.4-10.4); Platelet Count 166 10^3/uL (130-400); Red Blood Cell Count 4.02 10^6/uL (4.20-5.40)
== END ==
LOC: OIDL 15:48
PROVIDERS: ATTENDING PHYSICIAN Internal Medicine Hematology & Oncology
DX: C50.411 Malignant neoplasm of upper-outer quadrant of right female breast (principal)
CPT/HCPCS: 85025

== ENCOUNTER → 2024-07-29 09:51 | Outpatient (REF) | payer MEDICARE, SELFPAY | LOC: RAD 09:51 | PROVIDERS: ATTENDING PHYSICIAN Surgery; FAMILY PHYSICIAN Physician Assistant Medical | DX: R31.9 Hematuria, unspecified (principal) | CPT/HCPCS: 74178; Q9967 ==

== ENCOUNTER → 2024-08-05 09:31 | Outpatient (REF) | payer MEDICARE, SELFPAY | LOC: RCS 09:31 | PROVIDERS: ATTENDING PHYSICIAN Internal Medicine Cardiovascular Disease; FAMILY PHYSICIAN Physician Assistant Medical; REFERRING PHYSICIAN Internal Medicine Hematology & Oncology | DX: Z85.3 Personal history of malignant neoplasm of breast (principal); T45.1X5D Adverse effect of antineoplastic and immunosuppressive drugs, subsequent encounter | CPT/HCPCS: 93306; 93356 ==

== ENCOUNTER → 2024-10-01 10:11 | Outpatient (REF) | payer MEDICARE, SELFPAY | LOC: RAD 10:11 | PROVIDERS: ATTENDING PHYSICIAN Internal Medicine Gastroenterology; FAMILY PHYSICIAN Physician Assistant Medical | DX: R19.4 Change in bowel habit (principal) | CPT/HCPCS: 74018 ==

== ENCOUNTER → 2024-10-25 07:14 | Outpatient (REF) | payer MEDICARE, SELFPAY | LOC: RCS 07:14 | PROVIDERS: ATTENDING PHYSICIAN Internal Medicine Cardiovascular Disease; FAMILY PHYSICIAN Physician Assistant Medical; REFERRING PHYSICIAN Internal Medicine Hematology & Oncology | DX: I34.0 Nonrheumatic mitral (valve) insufficiency (principal) | CPT/HCPCS: 93306; 93356 ==

== ENCOUNTER → 2025-01-13 10:56 | Outpatient (REF) | payer MEDICARE, SELFPAY | LOC: WDC 10:56 | PROVIDERS: ATTENDING PHYSICIAN Surgery; FAMILY PHYSICIAN Family Medicine | DX: R92.30 Dense breasts, unspecified (principal); C50.411 Malignant neoplasm of upper-outer quadrant of right female breast; Z17.0 Estrogen receptor positive status [ER+] | CPT/HCPCS: 76641 ==

== ENCOUNTER → 2025-01-15 15:18 | Outpatient (REF) | payer MEDICARE, SELFPAY | LOC: RAD 15:18 | PROVIDERS: ATTENDING PHYSICIAN Surgery Vascular Surgery; FAMILY PHYSICIAN Physician Assistant Medical | DX: I83.891 Varicose veins of right lower extremity with other complications (principal) | CPT/HCPCS: 93970 ==

== ENCOUNTER → 2025-02-19 09:28 | Outpatient (REF) | payer MEDICARE, SELFPAY | LOC: RCS 09:28 | PROVIDERS: ATTENDING PHYSICIAN Internal Medicine Cardiovascular Disease; FAMILY PHYSICIAN Physician Assistant Medical | DX: I35.1 Nonrheumatic aortic (valve) insufficiency (principal); I44.4 Left anterior fascicular block; I36.1 Nonrheumatic tricuspid (valve) insufficiency; I34.0 Nonrheumatic mitral (valve) insufficiency | CPT/HCPCS: 93306; 93356 ==

== ENCOUNTER 2025-03-10 08:10 | Day surgery (SDC) | payer MEDICARE, SELFPAY ==
[2025-03-10] VITALS (15 sets, daily range): BP systolic 63–178; BP diastolic 45–71; BMI 25.2
[2025-03-10] MEDS: BACTROBAN NASAL 1 GRAM NASAL (08:42)
[2025-03-10] MEDS: PERIDEX 0.12% ORAL RINSE 15 ML PO (08:42)
[2025-03-10] MEDS: NSS 500 IV (08:43)
[2025-03-10 08:56] LABS: Hematocrit 42.4 % (37.0-47.0); Hemoglobin 14.6 g/dL (12.0-16.0); Mean Corp Hgb Conc. 34.4 g/dL (33.0-37.0); Mean Corpuscular Hgb 31.7 pg (27.0-31.0); Mean Platelet Volume 10.4 fL (7.4-10.4); Platelet Count 163 10^3/uL (130-400); Red Blood Cell Count 4.61 10^6/uL (4.20-5.40); Red Cell Dist. Width 12.9 % (11.5-14.5); White Blood Cell Count 6.6 10^3/uL (4.8-10.8)
[2025-03-10 09:11] LABS: INR 0.93; PT 12.8 Sec (11.4-14.6)
[2025-03-10 09:12] LABS: APTT 27.8 Sec (23.4-35.0)
[2025-03-10 09:18] LABS: Blood Urea Nitrogen 26 mg/dl (7-17); Calcium 9.8 mg/dl (8.4-10.2); Carbon Dioxide 26 mmol/L (22-30); Chloride 108 mmol/L (98-107); Estimated Creatinine Clearance 34 ml/min; Glucose 86 mg/dl (70-99); Potassium 3.9 mmol/L (3.5-5.1); Sodium 145 mmol/L (135-145)
--- NOTE | 2025-03-10 09:45 | W.SUR.PREOP ---
Pre-Operative Surgical Note
-
I have examined this patient prior to the performance of the scheduled procedure.
The patient's condition is unchanged from the time of the current History and
Physical and the patient is able to undergo the scheduled procedure.
--- NOTE | 2025-03-10 11:50 | W.SUR.POST ---
Surgical Immediate Post Op
Note
Pre Op Diagnosis: varicose vein
Post Op Diagnosis: same
Procedure Performed: RLE excision of vein nodule
Primary Surgeon: Remi
Assist:Ananda ADLER
Anesthesia: general
Estimated Blood Loss: 5cc
Fluids: see anesthesia flow sheet
Drains/Shunts: none
Specimens/Cultures: vein nodule
Doppler/Duplex/Angio (Y/N): Y
Complications: none
Operative Findings: none
--- NOTE | 2025-03-10 11:58 | OR.RPT ---
Operative Report
Operative Report
PROCEDURE DATE: 03/10/2025
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
Postoperative diagnosis: Subcutaneous nodule/mass (not a thrombosed varicose vein).
Procedure: Excision of subcutaneous nodule/small mass with overlying adherent varicose vein branch.
Surgeon: Remi
Electrician Outside: KAROLINA Malave, required for all aspects of procedure including traction countertraction, assistance with closure.
Complications: None
Anesthesia: General
Indications for procedure:
Patient with painful subcutaneous nodule. Her imaging had demonstrated a thrombosed varicose vein. I was not 100% convinced that this was a thrombosed varicose vein as she had had the symptoms for years and typically thrombosed varicose veins do
not cause symptoms like this. In addition it was a little bit more nodular than the typical cordlike palpation of a varicose vein. Regardless based on her continued symptoms she wished to have it excised. Risk/benefits/alternatives of were
discussed. Patient understood and wished to proceed.
Description of procedure:
Patient was identified brought to the operating room placed on the table in supine position. After the adequate administration of anesthesia she was prepped and draped in the standard surgical fashion. A standard preoperative timeout was
undertaken and everybody was in agreement the plan. I made a longitudinal incision in the distal medial calf centered over the nodule that I could palpate. This is carried through the subcutaneous tissue with the electrocautery. I identified the
vein branch here. As I began dissecting the venous branch and mobilizing it, I noted that there was a rather distinct nodule to which the vein was stuck on its anterior surface. (On the anterior surface of the nodule). It had a glistening capsule
and was white. Initially I thought this may be a neuroma. However there was a subcutaneous nerve that I clearly identified that was somewhat stuck to it posteriorly. I carefully dissected the nerve off posteriorly. I dissected the vein
proximally and distally. I ligated the vein proximally and distally. I could not dissect the vein off the anterior surface as it was strongly adherent. The nodule then just popped out easily. It was well-circumscribed and discrete. This was
then sent off for pathology. There is no residual nodular tissue. Hemostasis was fully noted. I irrigated copiously. I then closed in layers using 3-0 Vicryl deep dermal layer followed by 4 Monocryl subcuticular stitch. Dermabond was applied.
The patient tolerated procedure well.
== END 2025-03-10 14:05 | disposition home or self-care (01) ==
LOC: CATH 08:10
PROVIDERS: ATTENDING PHYSICIAN Surgery Vascular Surgery; FAMILY PHYSICIAN Physician Assistant Medical; OTHER PHYSICIAN Internal Medicine Cardiovascular Disease
DX: R22.41 Localized swelling, mass and lump, right lower limb (principal); I83.891 Varicose veins of right lower extremity with other complications; Z85.820 Personal history of malignant melanoma of skin; Z85.3 Personal history of malignant neoplasm of breast
CPT/HCPCS: 27618; 88304; 80048; 85027; 85610; 85730; 86850; 86900; 86901

== ENCOUNTER → 2025-05-23 11:21 | Outpatient (REF) | payer MEDICARE, SELFPAY | LOC: RAD 11:21 | PROVIDERS: ATTENDING PHYSICIAN Surgery; FAMILY PHYSICIAN Physician Assistant Medical | DX: R31.9 Hematuria, unspecified (principal) | CPT/HCPCS: 74178; Q9967 ==

== ENCOUNTER → 2025-05-28 15:20 | Outpatient (REF) | payer MEDICARE, SELFPAY | LOC: RAD 15:20 | PROVIDERS: ATTENDING PHYSICIAN Physician Assistant Medical | DX: Z86.39 Personal history of other endocrine, nutritional and metabolic disease (principal) | CPT/HCPCS: 76536 ==

== ENCOUNTER → 2025-08-05 14:03 | Outpatient (REF) | payer MEDICARE, SELFPAY | LOC: WDC 14:03 | PROVIDERS: ATTENDING PHYSICIAN Family Medicine Geriatric Medicine; FAMILY PHYSICIAN Physician Assistant Medical | DX: Z12.31 Encounter for screening mammogram for malignant neoplasm of breast (principal) | CPT/HCPCS: 77063; 77067 ==